=== PATIENT | male | born 1935 | race Caucasian/White ===

== ENCOUNTER 2017-07-07 02:19 | Observation (INO) | payer OTHER ==
[~2017-07-07] VITALS: Ht 167.6 cm; Wt 79.8 kg
[~2017-07-07 02:19] MED LIST: ACIPHEX20 M1 PO; FAMCICLOVIR250 MG PO; VITAMIN B-121000 MC3 PO; VITAMIN D2000 UNIT PO; ZESTRIL20 M1 PO; ZOCOR40 M1 PO
[2017-07-07 06:38] LABS: ABSOLUTE BASOPHIL COUNT 0 /CUMM (0.0-0.2); ABSOLUTE EOSINOPHIL COUNT 0.1 /CUMM (0.0-0.7); ABSOLUTE GRANULOCYTE CT 2.5 /CUMM (1.4-6.5); ABSOLUTE MONOCYTE COUNT 0.5 /CUMM (0.10-0.60); BASOPHIL % 0.5 % (0.0-2.0); EOSINOPHIL % 1.7 % (0-5); GRANULOCYTE % 57.3 % (42.2-75.2); HEMATOCRIT 32.6 % (42-52); MEAN CORPUSCULAR HGB 29.1 PG (27.0-31.0); MEAN CORPUSCULAR HGB CONC 31.6 G/DL (33.0-37.0); MEAN CORPUSCULAR VOLUME 91.9 FL (80.0-94.0); MEAN PLATELET VOLUME 8.1 FL (7.4-10.4); PLATELET COUNT 118 /CUMM (130-400); RBC DISTRIBUTION WIDTH 21.8 % (11.5-14.5); RED BLOOD CELL CT 3.55 /CUMM (4.70-6.10); WHITE BLOOD CELL COUNT 4.4 /CUMM (4.8-10.8)
[2017-07-07] MEDS ORDERED: LASIX20 M1 PO (06:59)
[2017-07-07 07:01] LABS: ABSOLUTE LYMPH COUNT 1.3 /CUMM (1.2-3.4)
--- NOTE | 2017-07-07 10:22 | Operative Report ---
Operative/Inv Procedure Report Surgery Date: 07/07/17 Name of Procedure: Diagnostic laparoscopy with lysis of adhesions Pre-Operative Diagnosis: 1. Abdominal pain. 2. Displaced penile implant reservoir 3. Abnormal abdominal CT scan findings Post-Operative Diagnosis: Same Estimated Blood Loss: scant Surgeon/Senior Label Specialist: Glenn Esposito DO,Freddie Matta Anesthesia: general endotracheal tube, block Monitors: Per routine Implants: None Urine Output: Adequate Drains: None Specimens: Refer to Dr. Humphries's note Complications: None Condition: Good Operative Indication: This is an 81-year-old man who had a CT scan for evaluation of abdominal pain. CT scan demonstrated misplacement of his penile implant reservoir into the peritoneal cavity with secondary small bowel involvement The CT scan also demonstrated a right lower quadrant mass adjacent to the appendix. His abdominal pain was very midgut and quality periumbilical crampy pain and I felt this could be related to this displaced reservoir. Urology was counseled and we decided to remove the reservoir at the same time perform a diagnostic laparoscopy. The patient underwent a bowel prep the day before the operation and the event there needed to be a bowel resection Operative/Procedure Note Note: The patient was taken to the operating room placed in supine position on the operating room table. He underwent induction of general anesthesia placement endotracheal tube. At this point Dr. Nikunj Humphries performed removal of the implants was performed. After his portion of the operation was completed the abdomen was reprepped and draped. We gained access to the abdominal cavity using a Valdez technique. A 12 mm Valdez port was placed in the suprabuccal position and then a 5 mm left lower quadrant and left upper quadrant ports were placed under direct visualization of the laparoscope. Laparoscopic expiration of the abdominal cavity was carried out. In the right lower quadrant I could see a hernia mesh in the inguinal canal. The mesh had balled up and contracted. The mesh was still covered by peritoneal lining and was adjacent to the appendix but not adherent to the appendix or any of the intestines. Photos were taken of this mesh. Next we turned our attention towards the left lower quadrant there was clearly bowel adhesions to the anterior abdominal wall in the area where the tumor had been. There was a small amount of bleeding or fluid in this area. Lysis of adhesions was carried out and the bowel was carefully inspected with the laparoscope. A few bleeding points were controlled on the abdominal wall. The bowel wall appeared completely intact with no evidence of serosal injury. So at this point the procedure was concluded. The ports were removed under direct visualization of the laparoscope. The fascia at the umbilical port was closed with a [id number] 0 Vicryl. All the skin incisions were closed with subcuticular 4-0 Monocryl. Mastisol Steri-Strips were applied. Dry sterile dressings were applied. The patient tolerated the procedure well was exiting operating room and taken recovery area in good condition. At the end of the operational needle sponges and instruments were accounted for. Findings: Right lower quadrant mass was actually hernia mesh Abdominal foreign body removed. Discharge Disposition: Same Day Admissions CC: Abner LLOYD,Sarah; Kamaljit LLOYD,Monty Wallace
--- NOTE | 2017-07-07 11:14 | Operative Report ---
Operative/Inv Procedure Report Surgery Date: 07/07/17 Name of Procedure: excision of left side penile implant reservoir. Pre-Operative Diagnosis: PI reservoir migrated intraperiotoneal, with small bowel involvement. Post-Operative Diagnosis: same: no small bowel adherance to reservoir Estimated Blood Loss: less than 50ml Surgeon/Chief Station Engineer: MD Humphries Arnold-Urology Anesthesia: general endotracheal tube Specimens: reservoir Complications: none Operative/Procedure Note Discharge Disposition: proceed with dr. murphy CC: Nikunj Humphries MD
--- NOTE | 2017-07-07 13:37 | Admission Core Measures ---
Acute Coronary Syndrome (CM) ACS Core Measures Acute Coronary Syndrome Diagnosis No Congestive Heart Failure (NEW) CHF Core Measures Congestive Heart Failure Diagnosis No Cerebrovascular Accident (NEW) CVA Core Measures CVA/TIA Diagnosis No Venous Thromboembolism VTE Core Betty (View Protocol) VTE Risk Factors Surgery No Mechanical VTE Prophylaxis d/t N/A MechProphylax Ordered No VTE Pharm Prophylaxis d/t NA PharmProphylax ordered Problem List As ranked by this Provider includes Assessment & Plan 1. Displacement of penile prosthesis implant 2. Intra-abdominal adhesions HOME MEDS Home Med List Cholecalciferol (Vitamin D3) (Vitamin D) 2,000 UNIT CAPSULE 1 CAP PO DAILY SUPPLEMENT (Reported) Cyanocobalamin (Vitamin B-12) 1,000 MCG TABLET 1 TAB PO DAILY SUPPLEMENT ( Reported) Famciclovir 250 MG TABLET 1 TAB PO DAILY ANTIVIRAL (Reported) Furosemide (Lasix) 20 MG TABLET 1 TAB PO DAILY LEG SWELLING (Reported) Lisinopril (Zestril) 20 MG TABLET 1 TAB PO DAILY BP (Reported) Rabeprazole Sodium (Aciphex) 20 MG TABLET.DR 1 TAB PO DAILY GI (Reported) Simvastatin (Zocor*) 40 MG TABLET 1 TAB PO QPM CHOLESTEROL (Reported)
[2017-07-07] MEDS ORDERED: AUGMENTIN 875-1 EACH PO (13:44)
[2017-07-07] MEDS ORDERED: PERCOCET 5-3251 EACH PO (13:44)
--- NOTE | 2017-07-07 13:51 | Patient Discharge Instructions ---
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 causing abdominal pain and adhesions You had these procedures: Removal of prosthetic implant, laparoscopic exploration and lysis of abdominal adhesions Watch for these problems: Worsening abdominal pain, nausea, vomiting, fever, flulike illness, drainage from the wounds, discharge from the wounds, redness, swelling Do not soak the wound: Yes No bath, but you may shower: Yes Other wound care: Change the Band-Aids when they get wet, the Steri-Strips will fall off on their own Special Instructions: take augmentin (antibiotic) twice daily for one week Diet Continue normal diet: Yes Recommended Diet: Regular Activity Full Activity/No Limits: No Activity Self Limited: Yes Pounds, do NOT lift more than: 10 Acute Coronary Syndrome Inclusion Criteria At DC or during hospital stay patient has or had the following: ACS DIAGNOSIS No Discharge Core Measures Meds if any: Prescribed or Continued at Discharge Meds if any: NOT Prescribed or Continued at Discharge Congestive Heart Failure Inclusion Criteria At DC or during hospital stay patient has or had the following: CHF DIAGNOSIS No Discharge Core Measures Meds if any: Prescribed or Continued at Discharge Meds if any: NOT Prescribed or Continued at Discharge Cerebrovascular accident Inclusion Criteria At DC or during hospital stay patient has or had the following: CVA/TIA Diagnosis No Discharge Core Measures Meds if any: Prescribed or Continued at Discharge Meds if any: NOT Prescribed or Continued at Discharge Venous thromboembolism Inclusion Criteria VTE Diagnosis No VTE Type NONE VTE Confirmed by (Test) NONE Discharge Core Measures - Per Current guidelines, there needs to be overlap - treatment for the first 5 days of Warfarin therapy. - If discharged on Warfarin prior to 5 days of - overlap therapy, the patient will need to be - assessed for post discharge needs including - *Post discharge parental anticoagulation - *Warfarin and/or parental anticoagulation education - *Follow up date to check INR post discharge At least 5 days overlap therapy as Inpatient No Meds if any: Prescribed or Continued at Discharge Note: Overlap Therapy is Warfarin and Anticoagulant Meds if any: NOT Prescribed or Continued at Discharge
--- NOTE | 2017-07-07 13:57 | Surg Short-stay <48hrs Dis Sum ---
Visit Information Visit Dates Admission Date: 07/07/17 Discharge Date: 07/08/17 Surgical Short Stay DC Summary Admission Diagnosis: Abdominal pain Final Diagnosis: Migration of prosthetic penile implant reservoir to the abdominal cavity causing abdominal pain and adhesions Procedure(s): Open Removal of prosthetic penile implant reservoir and laparoscopic exploration , lysis of abdominal adhesion Summary/Significant Findings: Patient was having mid left lower quadrant abdominal pain from a prosthetic penile implant reservoir that migrated from the pelvis into the abdominal cavity. This caused abdominal adhesions as well. The reservoir was removed I Dr. Humphries via an open procedure. Patient then underwent a laparoscopic exploration of the abdomen and lyse some adhesions by Dr. Elizabeth without complications. Intraoperatively there was no bowel injury. His diet was advanced, his pain was controlled, there are no signs of postoperative complications. He was placed on antibiotics prophylactically and continued on Augmentin prophylactically as requested by Dr. Humphries. He was discharged home in stable condition. Condition at Discharge: Good Discharge Disposition: home or self care Discharge instructions provided to patient/family: Yes Post discharge follow-up plan: Follow-up with Dr. Humphries in one week and Freddie Elizabeth DO in 2 weeks Take antibiotics for prevention of infection Pain medication as needed Dressing changes daily
--- NOTE | 2017-07-07 14:22 | PN- General Surgery ---
Subjective Subjective: Postop check: No complaints, tolerated clears for lunch, no pain. Objective Vital Signs and I&Os Intake & Output 07/07 1600 07/07 0000 07/06 0000 Intake Total Output Total Balance Patient 176 lb Weight Vital signs stable, afebrile Physical Exam: Well-developed well-nourished no apparent distress. HEENT: Atraumatic, extraocular motion intact Neck: Supple, no lymphadenopathy Respiratory: No respiratory distress Abdomen: Soft, nontender nondistended, incision is clean dry and intact Extremities: No edema, no calf pain Neuro: Alert and oriented x3 Psych: Mood affect normal, normal memory normal judgment. Skin: Warm and dry, no rash on exposed skin Assessment/Plan Assessment/Plan 81-year-old male postop day 0 status post open removal of prosthetic penile implant reservoir that migrated into the abdominal cavity and laparoscopic exploration for lysis of abdominal adhesions 23 hour observation for monitoring of bowel function Pain medication as needed. Out of bed, ad piedad. activity. Regular diet for dinner. Heparin and ALPS for DVT prophylaxis Plan for discharge tomorrow morning Core Measures Venous Thromboembolism VTE Risk Factors Surgery No Mechanical VTE Prophylaxis d/t N/A MechProphylax Ordered No VTE Pharm Prophylaxis d/t NA PharmProphylax ordered
[2017-07-07 15:04] VITALS: BP 140/60
[2017-07-07 22:21] VITALS: BP 120/62
[2017-07-08 05:59] VITALS: BP 118/57
--- NOTE | 2017-07-08 07:52 | PN- General Surgery ---
Subjective Subjective: feeling well, no n/v, scott reg diet. +oob to bathroom, +bm, +void. no pain. feels ready to dc home Objective Vital Signs and I&Os Vital Signs Date Time Temp Pulse Resp B/P B/P Pulse O2 O2 Flow FiO2 Mean Ox Delivery Rate 07/08 0559 98.3 74 20 118/57 92 07/07 2221 98.3 79 16 120/62 93 Room Air 07/07 1504 97.9 74 16 140/60 94 Room Air Intake & Output 07/08 0800 07/08 0000 07/07 1600 07/07 0800 07/07 0000 07/06 1600 Intake Total 240 720 Output Total 250 Balance 240 470 Intake, Oral 240 720 Number 2 Bowel Movements Output, Urine 250 Patient 176 lb 176 lb Weight Physical Exam: gen- nad card- rrr pulm- no audible wheeze abd- softly distended, nt, incisions w cdi dressings ext- calves soft nt, alps on bl Assessment/Plan Assessment/Plan A- POD1 sp lap SERENA, removal penile implant reservoir, stable P- prn pain meds augmentin bid x7days reg diet as tolerated dvt ppx, oob dc planning will dw Drs. Humphries and Glenn Core Measures Venous Thromboembolism VTE Risk Factors Surgery No Mechanical VTE Prophylaxis d/t N/A MechProphylax Ordered No VTE Pharm Prophylaxis d/t NA PharmProphylax ordered
--- NOTE | 2017-07-09 12:16 | Operative Report ---
Operative/Inv Procedure Report Surgery Date: 07/07/17 Name of Procedure: Extraction of migrated inflatable penile implant reservoir. Pre-Operative Diagnosis: Migrated penile implant reservoir into the peritoneum Post-Operative Diagnosis: . Same Estimated Blood Loss: scant Surgeon/Cadet Deck: MD Yandel, Nikunj-Urology Anesthesia: general endotracheal tube Drains: None Specimens: Penile implant reservoir Complications: None Operative/Procedure Note Note: The patient was taken to the operating room placed the OR table in supine position. Out was performed with the patient awake, in order to confirm correct identity, antibiotic, anesthesia, procedure, and perioperative information. After adequate anesthesia and antibiotics, the patient was then draped and prepped in usual surgical fashion. The old left hernia incision was infiltrated with 2% lidocaine. 15 blade knife was used to incise the old scar tissue from the left hernia repair. The incision was carried down through the Brandon's fascia using Bovie cautery in coag current. Blunt and sharp dissection was performed in order to enter 5 the tubing of the penile implant reservoir. 3 medium-sized clips were placed on the distal portion of the tubing prior to transecting the tubing in order to preserve the majority of the multiple components. The tubing leading to the reservoir draining clear fluid. Blunt and sharp dissection along this tubing was performed in order to visualize the distal bulbar with in a fibrous capsule. Gentle dissection was performed in order to extract the entire bulb and the portion of the tubing without difficulty. The area was copiously irrigated with vancomycin solution prior to closing the small fascial opening using 0 Vicryl sutures. The Brandon fascia was reapproximated using interrupted 3-0 chromic sutures. The skin was closed using 4-0 Monocryl subcuticular stitch. Steri-Strips and Tegaderm was then placed over the incision. All sponge needle and instrument count were correct at the end of this particular portion of the case. The patient tolerated the procedure well without complications. The patient is to proceed then with Dr. buckley portion of the surgery. Recommendation is for the patient to be continued on by mouth antibiotics for an additional 7 days postop. Discharge Disposition: proceed with Dr. Elizabeth Additional Comments: Patient to return in 3-6 months for re-implantation of new reservoir. CC: Nikunj Humphries MD
== END 2017-07-08 09:25 ==
LOC: STS 02:19 → EDSTATUS 07:00 → STS 07:00 → SDA 07:00 → PACUH 09:41 → ENRESERV 12:10 → ENTRNSPT 13:34 → EDTRNSPT 14:00 → EDTRNSPTSTS 14:00 → 2NB 14:10 → CMPTRNSPT 14:14 → ENPENDDIS 07-08 07:49 → ENTRNSPT 07-08 09:11 → 2NB 07-08 09:25 → CMPTRNSPT 07-08 09:30
PROVIDERS: Colon & Rectal Surgery
DX: T83.420A Displacement of implanted penile prosthesis, initial encounter (principal); Y73.2 Prosthetic and other implants, materials and accessory gastroenterology and urology devices associated with adverse incidents; R10.31 Right lower quadrant pain; M79.5 Residual foreign body in soft tissue; I11.0 Hypertensive heart disease with heart failure; N18.3 Chronic kidney disease, stage 3 (moderate); C90.00 Multiple myeloma not having achieved remission; I35.1 Nonrheumatic aortic (valve) insufficiency
CPT/HCPCS: 6040; 36415; 87086; 96372; 96374; 96376; C9399; G0378; J0131; J0690; J1644; J2405; J2550; J3370

== ENCOUNTER → 2017-11-12 | Day surgery (SDC) | payer OTHER ==
[~2017-11-12] VITALS: Ht 167.6 cm; Wt 73.5 kg
[~2017-11-12] MED LIST changes: +AUGMENTIN 875-1 EACH PO; +LASIX20 M1 PO; +PERCOCET 5-3251 EACH PO
--- NOTE | 2017-11-13 18:06 | Operative Report ---
Operative/Inv Procedure Report Surgery Date: 11/12/17 Name of Procedure: Revision multi component order inflatable penile implant reservoir Pre-Operative Diagnosis: Obstructive penile implant reservoir removed several weeks ago. Post-Operative Diagnosis: Same Estimated Blood Loss: less than 50ml Surgeon/Water Purification Chemist: Nikunj Humphries MD Anesthesia: laryngeal mask airway, block Implants: 125CC RESERVOIR Complications: NONE Operative/Procedure Note Note: The patient was taken as supine position after adequate anesthesia and antibiotics, the patient's abdomen and thighs scrubbed with Betadine for 10 minutes, and then ChloraPrep for sterility. The patient was then draped in the usual surgical fashion. A left lower quadrant incision, approximately 2 half centimeters long was made in oblique fashion just above the scar tissue. Using Bovie cautery, the incision was deepened to the level of the rectus fascia. Blunt and sharp dissection was performed in order to locate the stone on the multi component penile implant tUBING. Once the tubing was located, a rubber- shod clamp was placed on the tubing prior to excising the sEALED TIP. Clear fluid was aspirated from the penile implant and wasted. Fresh sterile saline was placed in the implant in order to ensure patency tubing and the implant a posterior rectus sheath was incised using 15 blade knifE, the rectus muscle was split using alternating clamp technique in order to identify the posterior sheath of the rectus fascia a space was created underneath the speak muscle where the 125 mL reservoir was placed. A total of 30 mL fresh sterile saline was placed within the penile implant for semi-erection, and 30 mL of sterile saline was placed in the reservoir. The tubing was detached using the Montgomery clips. Once the tubing was attached, the penile implant was cycled 3 times in order to confirm good function with easy flow in and out. The entire area was copiously irrigated with vancomycin and gentamicin irrigation. The anterior rectus sheath was then closed using interrupted 0 Vicryl sutures. Subcutaneous flap was . reapproximated using 2-0 chromic sutures in interrupted fashion. The skin was closed using 4-0 Monocryl subcuticular stitch. Dermabond was then used to seal the skin incision, and then sterile gauze and Tegaderm was placed on the incision. All sponge needle and instrument count were correct at the case. The patient tolerated the procedure well. I patient was then taken to the recovery room in satisfactory condition. Discharge Disposition: PACU CC: Nikunj Humphries MD
== END ==
LOC: STS 02:54
DX: N52.9 Male erectile dysfunction, unspecified (principal); N52.03 Combined arterial insufficiency and corporo-venous occlusive erectile dysfunction; C90.01 Multiple myeloma in remission; I10 Essential (primary) hypertension; I25.10 Atherosclerotic heart disease of native coronary artery without angina pectoris
CPT/HCPCS: 93005; 93010; C2622; J0131; J1100; J1580; J2001; J2250; J2405; J3370

== ENCOUNTER 2017-12-24 11:49 | Inpatient (IN) | payer OTHER ==
[~2017-12-24] VITALS: Ht 167.6 cm; Wt 74.9 kg
[2017-12-24 13:36] LABS: ABSOLUTE BASOPHIL COUNT 0 /CUMM (0.0-0.2); ABSOLUTE EOSINOPHIL COUNT 0 /CUMM (0.0-0.7); ABSOLUTE GRANULOCYTE CT 1.7 /CUMM (1.4-6.5); ABSOLUTE LYMPH COUNT 0.9 /CUMM (1.2-3.4); ABSOLUTE MONOCYTE COUNT 0.4 /CUMM (0.10-0.60); BASOPHIL % 0 % (0.0-2.0); EOSINOPHIL % 1.5 % (0-5); GRANULOCYTE % 54.2 % (42.2-75.2); HEMATOCRIT 29.8 % (42-52); MEAN CORPUSCULAR HGB 28.2 PG (27.0-31.0); MEAN CORPUSCULAR HGB CONC 32.1 G/DL (33.0-37.0); MEAN CORPUSCULAR VOLUME 87.9 FL (80.0-94.0); MEAN PLATELET VOLUME 10.1 FL (7.4-10.4); RBC DISTRIBUTION WIDTH 21.7 % (11.5-14.5); RED BLOOD CELL CT 3.38 /CUMM (4.70-6.10); WHITE BLOOD CELL COUNT 3.1 /CUMM (4.8-10.8)
[2017-12-24 13:54] LABS: PLATELET COUNT 64 /CUMM (130-400)
--- NOTE | 2017-12-24 14:19 | RADIOLOGY REPORT ---
EXAMINATION: XR CHEST CLINICAL INFORMATION: Fever COMPARISON: None TECHNIQUE: 2 views of the chest were obtained. FINDINGS: Lungs are well expanded. There is an area of airspace opacity with hazy border in the anterior aspect of the superior segment of the left lower lobe. No left-sided pleural effusion. Minimal blunting of the right lateral costophrenic sulcus could be secondary to minimal pleural thickening. Cardiac silhouette is normal in size and hilar contours are normal. Mild spondylosis of the thoracic spine. IMPRESSION: The airspace opacity within the superior segment left lower lobe likely represents pneumonia. Recommend radiographic follow-up in 6 weeks - after completion of medical therapy - to ensure disease resolution.
--- NOTE | 2017-12-24 15:24 | ED GENERAL ADULT ---
History of Present Illness General Chief Complaint: Fever Stated Complaint: FEVER X 5 DAYS Source: patient Exam Limitations: no limitations Vital Signs & Intake/Output Vital Signs & Intake/Output Vital Signs Date Time Temp Pulse Resp B/P B/P Pulse O2 O2 Flow FiO2 Mean Ox Delivery Rate 12/24 1713 101.2 12/24 1712 101.2 70 18 98/56 95 Room Air 12/24 1630 98.6 12/24 1557 98.6 70 18 122/58 95 Room Air 12/24 1219 98.7 73 20 132/55 97 Room Air Allergies Coded Allergies: No Known Allergies (11/11/17) Reconcile Medications Bortezomib (Velcade) 3.5 MG VIAL 2.34 MG SC AD CHEMO (Reported) Calcium (Elemental-Fr Calcarb) (Calcium) (Unknown Strength) TABLET (Unknown Dose) PO DAILY SUPPLEMENT (Reported) Cholecalciferol (Vitamin D3) (Vitamin D) 2,000 UNIT CAPSULE 1 CAP PO DAILY SUPPLEMENT (Reported) Cyanocobalamin (Vitamin B-12) 1,000 MCG TABLET 1 TAB PO DAILY SUPPLEMENT ( Reported) Dexamethasone 2 MG TABLET 10 MG PO AD STEROID (Reported) Famciclovir 250 MG TABLET 1 TAB PO DAILY ANTIVIRAL (Reported) Lenalidomide (Revlimid) 10 MG CAPSULE 1 CAP PO DAILY CHEMO (Reported) Multivitamin (Multi-Vitamin Daily) 1 EACH TABLET 1 TAB PO DAILY SUPPLEMENT ( Reported) Rabeprazole Sodium (Aciphex) 20 MG TABLET.DR 1 TAB PO DAILY GI (Reported) Simvastatin (Zocor*) 40 MG TABLET 1 TAB PO QPM CHOLESTEROL (Reported) Triage Note: PT TO ED C/O FEVER OF 102 X 5 DAYS. PT CURRENTLY BEING TREATED FOR MULTIPLE MYELOMA. PT DENIES PAIN, C/P, HAS NO COMPLAINTS. Triage Nurses Notes Reviewed? yes Onset: Gradual Duration: day(s): Timing: recent history HPI: 82 year old male presents to the Emergency Department with a fever since Thursday. Pt denies blood in his urine, chest pain. The patient reports he has a history of multiple myeloma and is on chemotherapy. The patient denies headache, neck pain, cough, phlegm, abdominal pain, dysuria, hematuria. Past History Travel History Traveled to [place] past 21 day No Medical History Any Pertinent Medical History? see below for history Neurological: peripheral neuropathy Cardiovascular: hypertension, AORTIC INSUFFICENCY Gastrointestinal: GERD Blood Disorders: anemia Cancer(s): MULTIPLE MYELOMA History of MRSA: No History of VRE: No History of CDIFF: No Influenza Vaccine: 03/18/17 Surgical History Surgical History: non-contributory Psychosocial History What is your primary language Fijian Tobacco Use: Never used ETOH Use: denies use Illicit Drug Use: denies illicit drug use Family History Hx Contributory? No Review of Systems Review of Systems Constitutional: Reports: see HPI, chills, fever. EENTM: Reports: no symptoms. Respiratory: Reports: no symptoms. Denies: cough, hemoptysis, short of breath. Cardiovascular: Reports: no symptoms. Denies: chest pain. GI: Reports: no symptoms. Denies: vomiting. Genitourinary: Reports: no symptoms. Denies: hematuria. Musculoskeletal: Reports: no symptoms. Skin: Reports: no symptoms. Neurological/Psychological: Reports: no symptoms. Hematologic/Endocrine: Reports: no symptoms. Immunologic/Allergic: Reports: no symptoms. All Other Systems: Reviewed and Negative Comments Pt afebrile on arrival and noted with a cough. Pt also presents with tremors. Physical Exam Physical Exam General Appearance: alert, awake, mild distress Head: atraumatic, normal appearance Eyes: Bilateral: normal appearance, PERRL, EOMI. Ears, Nose, Throat: normal ENT inspection Neck: normal inspection Respiratory: decreased breath sounds Cardiovascular: regular rate/rhythm Peripheral Pulses: 4+ radial (R), 4+ radial (L) Gastrointestinal: soft, non-tender Extremities: normal inspection, no edema Neurologic/Psych: no motor/sensory deficits, awake, alert, oriented x 3 Skin: intact, normal color, dehydrated Core Measures ACS in differential dx? No CVA/TIA Diagnosis: No Sepsis Present: No Sepsis Focused Exam Completed? No Progress Differential Diagnoses . Plan of Care: Orders Procedure Date/time Status CBC WITHOUT DIFFERENTIAL 12/25 06 Active BASIC ELECTROLYTES PLUS BUN&CR 12/25 0600 Active Heart Healthy Diet 12/24 D Active Pathway - chart 12/24 1751 Active Add-on Test (ER Only) 12/24 1728 Active Patient Data 12/24 1605 Active VITAL CAPACITY MONITORING 12/24 1600 Active ED Holding Orders 12/24 1600 Active Admit to inpatient 12/24 1600 Active Code Status 12/24 1600 Active Intake & Output 12/24 1554 Active Add-on Test (ER Only) 12/24 1426 Active TROPONIN LEVEL 12/24 1308 Active B-TYPE NATRIURETIC PEP (BNP) 12/24 1308 Active EKG 12/24 1235 Active BLOOD CULTURE 12/24 1234 Active URINALYSIS 12/24 1234 Complete LACTIC ACID 12/24 1234 Active COMPREHENSIVE METABOLIC PANEL 12/24 1234 Active CBC WITHOUT DIFFERENTIAL 12/24 1234 Complete VTE Mechanical Prophylaxis 12/24 UNK Active Nursing Misc 12/24 UNK Active Current Medications Sig/Meliza Start time Last Medication Dose Stop Time Status Admin Vancomycin HCl 1,000 MG Q24H 12/25 1630 AC Sodium Chloride 250 ML (Normal Saline 0.9%) Ceftazidime 1,000 MG Q12 12/24 2100 UNVr (Fortaz) Acetaminophen 650 MG Q8P PRN 12/24 1800 AC (Tylenol) Sodium Chloride 1,000 ML Q13H 12/24 1730 AC 12/24 (Normal Saline 0.9%) 1740 Laboratory Tests 12/24/17 1534: Lactic Acid Cancelled 12/24/17 1525: Lactic Acid Cancelled 12/24/17 1330: Urinalysis LIGHT H, Urine Color YEL, Urine Clarity HAZY H, Urine pH 6.0, Ur Specific [place] 1.020, Urine Protein 100 H, Urine Ketones NEG, Urine Nitrite NEG, Urine Bilirubin NEG, Urine Urobilinogen 0.2, Ur Leukocyte Esterase NEG, Ur Microscopic SEDIMENT EXAMINED, Urine RBC >75 H, Urine WBC 3-5 H, Ur Epithelial Cells FEW, Urine Bacteria FEW H, Urine Hemoglobin LARGE H, Urine Glucose NEG 12/24/17 1308: Anion Gap 9, Estimated GFR 29 L, BUN/Creatinine Ratio 14.5, Glucose 103 H, Lactic Acid 0.8, Calcium 7.5 L, Total Bilirubin 1.0, AST 20, ALT 40, Alkaline Phosphatase 87, Troponin I 0.15 *H, Nse-B-Nxqxgurgicw Pept Pending, Total Protein 5.3 L, Albumin 3.0 L, Globulin 2.3, Albumin/Globulin Ratio 1.3, CBC w Diff NO MAN DIFF REQ, RBC 3.38 L, MCV 87.9, MCH 28.2, MCHC 32.1 L, RDW 21.7 H , MPV 10.1, Gran % 54.2, Lymphocytes % 29.8, Monocytes % 14.5 H, Eosinophils % 1.5, Basophils % 0, Absolute Granulocytes 1.7, Absolute Lymphocytes 0.9 L, Absolute Monocytes 0.4, Absolute Eosinophils 0, Absolute Basophils 0 12/24/17 1235: Troponin I Cancelled Microbiology 12/24 1525 BLOOD: Blood Culture - CAN Cancelled: Cancelled via OE: DUPLICATE ORDER 12/24 1525 BLOOD: Blood Culture - CAN Cancelled: Cancelled via OE: DUPLICATE ORDER 12/24 1308 BLOOD: Blood Culture - RECD 12/24 1301 BLOOD: Blood Culture - RECD Initial ED EKG: normal sinus rhythm Prior EKG: unchanged Comments: X-ray shows Pna, blood cultures and lactic acid ordered. 180 82-year-old male with pneumonia. The patient is immunocompromise so we will give him broad-spectrum antibiotics. Cefepime is unavailable we will give him third-generation cephalosporin with vancomycin. The patient's lactate is normal. His blood pressures have been good. We will keep an eye on him. The patient will be admitted to the medicine service. I spoke with the hospitalist on MOD and the patient will be admitted. The patient does have abnormal urine but reports this is chronic for him he reports that 2 days ago he had a culture done by speech which was negative. We will send it for culture but we will not do any more further testing at this time. Departure Departure Time of Disposition: 1809 Disposition: STILL A PATIENT Condition: Stable Clinical Impression Primary Impression: Pneumonia Referrals: Juliana Lopes MD (PCP/Family) Departure Forms: Customer Survey General Discharge Information Critical Care Note Critical Care Note Critical Care Time: non-applicable ED Attending Observation Initial Observation Note: I have seen and personally examined DENI NORMAN on 12/24/17 at 1810. I agree with the current emergency department documentation. The disposition (admission or discharge) is uncertain at this time, he needs a period of observation for the following reason(s): The ED Nurse caring for this patient has been personally informed as to what the patient is being observed for.
[2017-12-24] MEDS ORDERED: CALCIUM600 M3 PO (16:13)
[2017-12-24] MEDS ORDERED: DEXAMETHASONE2 M1 PO (16:15)
[2017-12-24] MEDS ORDERED: MULTI-VITAMIN1 EACH PO (16:16)
[2017-12-24] MEDS ORDERED: VELCADE SC (16:17)
[2017-12-24] MEDS ORDERED: REVLIMID10 M1 PO (16:18)
--- NOTE | 2017-12-24 17:18 | History & Physical ---
Elizabeth Eckert 12/24/17 1718: General Information and HPI MD Statement: I have seen and personally examined DENI NORMAN and documented this H&P. The patient is a 82 year old M who presented with a patient stated chief complaint of [fever]. Source of Information: patient, family Exam Limitations: no limitations History of Present Illness: Patient a 82-year-old male with past medical history of aortic aneurysm, CKD, GERD, multiple myeloma diagnosed [address] Ruth DALE, on revlmid daily and Velcade and dexamethasone (3 weeks on, 1 week off), was brought in by with a chief complaint of fever since Thursday. Patient reports that he was increasingly weak since Thursday, and when the checked his temperature it was 102. He followed up with his oncologist and was prescribed azithromycin which he started taking on Thursday untill am. For fever he has been taking [id number] Tylenol. Patient had an appointment to see a primary care physician today, however came to ER. Patient reports that he has been having exertional dyspnea and therefore had a recent echocardiogram done by his bond writer 2 days ago. Patient denies any chest pain, productive cough, dizziness, headache, palpitations, abd discomfort, burning micturition/ pain or swelling in the legs. Patient reported that he has been having fever and UTI while being on chemotherapy. Patient reports that microscopic hematuria that has been going on since a couple of years now, he had a cystoscopy done with his urologist previously and was told that there is no mass in the bladder. 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 Humphries. There is no gross hematuria as his urine is yellow in color. Allergies/Medications Allergies: Coded Allergies: No Known Allergies (11/11/17) Compliance With Home Meds: GOOD Past History Travel History Traveled to [place] past 21 day No Medical History Neurological: peripheral neuropathy Cardiovascular: hypertension, AORTIC INSUFFICENCY Gastrointestinal: GERD Blood Disorders: anemia Cancer(s): MULTIPLE MYELOMA History of MRSA: No History of VRE: No History of CDIFF: No Influenza Vaccine: 03/18/17 Surgical History Surgical History: non-contributory Past Family/Social History Psychosocial History ETOH Use: denies use Illicit Drug Use: denies illicit drug use Review of Systems Review of Systems Constitutional: Reports: see HPI. Exam & Diagnostic Data Last 24 Hrs of Vital Signs/I&O Vital Signs Date Time Temp Pulse Resp B/P B/P Pulse O2 O2 Flow FiO2 Mean Ox Delivery Rate 12/24 1816 99.2 64 18 132/62 97 Room Air 12/24 1713 101.2 12/24 1712 101.2 70 18 98/56 95 Room Air 12/24 1630 98.6 12/24 1557 98.6 70 18 122/58 95 Room Air 12/24 1219 98.7 73 20 132/55 97 Room Air Intake & Output 12/24 1600 12/24 0800 12/24 0000 Intake Total Output Total Balance Patient 71.214 kg Weight Weight Reported by Patient Measurement Method Physical Exam General Appearance Alert, Oriented X3, Cooperative, No Acute Distress Skin No Rashes HEENT Atraumatic Neck Supple Cardiovascular Regular Rate, Normal S1, Normal S2 Lungs Clear to Auscultation Abdomen Normal Bowel Sounds, Soft, No Tenderness Extremities No Edema Last 24 Hrs of Labs/Jerome: Laboratory Tests 12/24/17 1825: Lactic Acid Cancelled 12/24/17 1534: Lactic Acid Cancelled 12/24/17 1525: Lactic Acid Cancelled 12/24/17 1330: Urinalysis LIGHT H, Urine Color YEL, Urine Clarity HAZY H, Urine pH 6.0, Ur Specific [place] 1.020, Urine Protein 100 H, Urine Ketones NEG, Urine Nitrite NEG, Urine Bilirubin NEG, Urine Urobilinogen 0.2, Ur Leukocyte Esterase NEG, Ur Microscopic SEDIMENT EXAMINED, Urine RBC >75 H, Urine WBC 3-5 H, Ur Epithelial Cells FEW, Urine Bacteria FEW H, Urine Hemoglobin LARGE H, Urine Glucose NEG 12/24/17 1308: Anion Gap 9, Estimated GFR 29 L, BUN/Creatinine Ratio 14.5, Glucose 103 H, Lactic Acid 0.8, Calcium 7.5 L, Total Bilirubin 1.0, AST 20, ALT 40, Alkaline Phosphatase 87, Troponin I 0.15 *H, Upm-T-Mtursclsakk Pept 3330 H, Total Protein 5.3 L, Albumin 3.0 L, Globulin 2.3, Albumin/Globulin Ratio 1.3, CBC w Diff NO MAN DIFF REQ, RBC 3.38 L, MCV 87.9, MCH 28.2, MCHC 32.1 L, RDW 21.7 H , MPV 10.1, Gran % 54.2, Lymphocytes % 29.8, Monocytes % 14.5 H, Eosinophils % 1.5, Basophils % 0, Absolute Granulocytes 1.7, Absolute Lymphocytes 0.9 L, Absolute Monocytes 0.4, Absolute Eosinophils 0, Absolute Basophils 0 12/24/17 1235: Troponin I Cancelled Microbiology 12/24 1525 BLOOD: Blood Culture - CAN Cancelled: Cancelled via OE: DUPLICATE ORDER 12/24 1525 BLOOD: Blood Culture - CAN Cancelled: Cancelled via OE: DUPLICATE ORDER 12/24 1308 BLOOD: Blood Culture - RECD 12/24 1301 BLOOD: Blood Culture - RECD Assessment/Plan Assessment: Patient a 82-year-old male with past medical history of aortic aneurysm, CKD, GERD, multiple myeloma diagnosed [address] Ruth DALE, on revlmid daily and Velcade and dexamethasone (3 weeks on, 1 week off), was brought in by with a chief complaint of fever since Thursday. Patient reports that he was increasingly weak since Thursday, and when the checked his temperature it was 102. He followed up with his oncologist and was prescribed azithromycin which he started taking on Thursday till morning. For fever he has been taking emxj-phn-[id number] Tylenol. Patient had an appointment to see a primary care physician today, however he came to ER. Patient reports that he has been having exertional dyspnea and therefore had a recent echocardiogram done by his bond writer 2 days ago. Patient denies any chest pain, productive cough, dizziness, headache, palpitations, abd discomfort, burning micturition/ pain or swelling in the legs. Patient reported that he has been having fever and UTI while being on chemotherapy. Labs and vitals as above. hemoglobin 9.5, creatinine 2.2. UA shows large hemoglobin and RBCs. CXR: The airspace opacity within the superior segment left lower lobe likely represents pneumonia. Recommend radiographic follow-up in 6 weeks - after completion of medical therapy - to ensure disease resolution. Assessment and plan Will admit the patient for community acquired pneumonia in the setting of multiple myeloma. Patient was given broad-spectrum antibiotics in the ER, vancomycin and CeFtaz and will continue. Patient took his Revlimid this am, he takes dexamethasone only with Velcade which he says is due in 2 weeks since next week is his 'off week' for treatment. Vitals every shift. Given his elevated troponins, will trend troponins and EKG, will place cardio consult. Given his current treatment for multiple myeloma with an ongoing infection and low platelets and wbc count, will call hematology consult for a.m. Please consider ID consult in a.m. as well. Due to thrombocytopenia DVT prophylaxis Alps. Patient is full code. As Ranked By This Provider Problem List: 1. Pneumonia Core Measures/Misc (02/15) Acute Coronary Syndrome ACS Diagnosis: No Congestive Heart Failure Congestive Heart Failure Diagnosis No Cerebrovascular Accident CVA/TIA Diagnosis: No VTE (View Protocol) VTE Risk Factors Age>40 No Mechanical VTE Prophylaxis d/t N/A MechProphylax Ordered No VTE Pharm Prophylaxis d/t Platelets below ref range Sepsis (View protocol) Sepsis Present: No If YES complete Sepsis Event Note If YES complete Sepsis Event Note Margarita Mayfield MD 12/24/17 3824: General Information and HPI Allergies/Medications Home Med list Bortezomib (Velcade) 3.5 MG VIAL 2.34 MG SC AD CHEMO (Reported) Calcium (Elemental-Fr Calcarb) (Calcium) (Unknown Strength) TABLET (Unknown Dose) PO DAILY SUPPLEMENT (Reported) Cholecalciferol (Vitamin D3) (Vitamin D) 2,000 UNIT CAPSULE 1 CAP PO DAILY SUPPLEMENT (Reported) Cyanocobalamin (Vitamin B-12) 1,000 MCG TABLET 1 TAB PO DAILY SUPPLEMENT ( Reported) Dexamethasone 2 MG TABLET 10 MG PO AD STEROID (Reported) Famciclovir 250 MG TABLET 1 TAB PO DAILY ANTIVIRAL (Reported) Lenalidomide (Revlimid) 10 MG CAPSULE 1 CAP PO DAILY CHEMO (Reported) Multivitamin (Multi-Vitamin Daily) 1 EACH TABLET 1 TAB PO DAILY SUPPLEMENT ( Reported) Rabeprazole Sodium (Aciphex) 20 MG TABLET.DR 1 TAB PO DAILY GI (Reported) Simvastatin (Zocor*) 40 MG TABLET 1 TAB PO QPM CHOLESTEROL (Reported) Temazepam 15 MG CAPSULE 1 CAP PO QPMP Sleep (Reported) Core Measures/Misc (02/15) Sepsis (View protocol) If YES complete Sepsis Event Note If YES complete Sepsis Event Note Attending MD Review Statement Attending Statement Attending MD Statement: examined this patient, discuss w/resident/PA/SOLAR DEVELOPMENT ENGINEER, agreed w/resident/PA/SOLAR DEVELOPMENT ENGINEER, discussed with family, reviewed EMR data (avail), discussed with nursing, discussed with case mgmt, reviewed images, amended to note Attending Assessment/Plan: 82-year-old male with past medical history significant for multiple myeloma undergoing chemotherapy with Velcade, Revlimid, dexamethasone and also on famciclovir, chronic kidney disease stage III, hypertension, GERD, chronic anemia who presented with fevers. Apparently patient has been having high-grade fever since last 5 days. He had been taking Tylenol. He did complain of feeling chills. He was prescribed azithromycin by his oncologist. He does have a history of recurrent fevers while on chemo as well as UTIs. He had taken 4 doses of azithromycin and his fevers did not come down. He had also developed diarrhea related to chemotherapy in the past but currently denies any diarrhea. He denies any chest pain or abdominal pain. He denies any cough. In the emergency room his chest x-ray was consistent with possible pneumonia. Patient was found to be febrile to 101. Vital Signs Date Time Temp Pulse Resp B/P B/P Pulse O2 O2 Flow FiO2 Mean Ox Delivery Rate 12/24 1713 101.2 12/24 1712 101.2 70 18 98/56 95 Room Air 12/24 1630 98.6 12/24 1557 98.6 70 18 122/58 95 Room Air 12/24 1219 98.7 73 20 132/55 97 Room Air on exam; aox3, nad. cv; s1, s2, rrr resp; + crackles b/l bases L>R. abd; soft, nt, bs+ ext; trace edema. Laboratory Tests 12/24 12/24 1534 1525 Chemistry Lactic Acid Cancelled Cancelled 12/24 12/24 1330 1308 Chemistry Sodium (137 - 145 mmol/L) 137 Potassium (3.5 - 5.1 mmol/L) 4.5 Chloride (98 - 107 mmol/L) 105 Carbon Dioxide (22 - 30 mmol/L) 24 Anion Gap (5 - 16) 9 BUN (9 - 20 mg/dL) 32 H Creatinine (0.7 - 1.2 mg/dL) 2.2 H Estimated GFR (>60 ml/min) 29 L BUN/Creatinine Ratio (7 - 25 %) 14.5 Glucose (65 - 99 mg/dL) 103 H Lactic Acid (0.7 - 2.1 mmol/L) 0.8 Calcium (8.4 - 10.2 mg/dL) 7.5 L Total Bilirubin (0.2 - 1.3 mg/dL) 1.0 AST (17 - 59 U/L) 20 ALT (21 - 72 U/L) 40 Alkaline Phosphatase (< 127 U/L) 87 Troponin I (<0.11 ng/ml) 0.15 *H [id number]-Ncjqmopqeyu Pept (<125 pg/mL) Pending Total Protein (6.3 - 8.2 g/dL) 5.3 L Albumin (3.5 - 5.0 g/dL) 3.0 L Globulin (1.9 - 4.2 gm/dL) 2.3 Albumin/Globulin Ratio (1.1 - 2.2 %) 1.3 Hematology CBC w Diff NO MAN DIFF REQ WBC (4.8 - 10.8 /CUMM) 3.1 L RBC (4.70 - 6.10 /CUMM) 3.38 L Hgb (14.0 - 18.0 G/DL) 9.5 L Hct (42 - 52 %) 29.8 L MCV (80.0 - 94.0 FL) 87.9 MCH (27.0 - 31.0 PG) 28.2 MCHC (33.0 - 37.0 G/DL) 32.1 L RDW (11.5 - 14.5 %) 21.7 H Plt Count (130 - 400 /CUMM) 64 L MPV (7.4 - 10.4 FL) 10.1 Gran % (42.2 - 75.2 %) 54.2 Lymphocytes % (20.5 - 51.1 %) 29.8 Monocytes % (1.7 - 9.3 %) 14.5 H Eosinophils % (0 - 5 %) 1.5 Basophils % (0.0 - 2.0 %) 0 Absolute Granulocytes (1.4 - 6.5 /CUMM) 1.7 Absolute Lymphocytes (1.2 - 3.4 /CUMM) 0.9 L Absolute Monocytes (0.10 - 0.60 /CUMM) 0.4 Absolute Eosinophils (0.0 - 0.7 /CUMM) 0 Absolute Basophils (0.0 - 0.2 /CUMM) 0 Urines Urinalysis LIGHT H Urine Color (YEL,AMB,STR) YEL Urine Clarity (CLEAR) HAZY H Urine pH (5.0 - 8.0) 6.0 Ur Specific [place] (1.001 - 1.035) 1.020 Urine Protein (NEG,<30 MG/DL) 100 H Urine Ketones (NEG) NEG Urine Nitrite (NEG) NEG Urine Bilirubin (NEG) NEG Urine Urobilinogen (0.1 - 1.0 EU/dl) 0.2 Ur Leukocyte Esterase (NEG) NEG Ur Microscopic SEDIMENT EXAMINED Urine RBC (0 - 5 /HPF) >75 H Urine WBC (0 - 2 /HPF) 3-5 H Ur Epithelial Cells (NONE,FEW) FEW Urine Bacteria (NEG/NONE) FEW H Urine Hemoglobin (NEG) LARGE H Urine Glucose (N MG/DL) NEG 12/24 1235 Chemistry Troponin I Cancelled EKG shows sinus rhythm with no acute ST-T wave changes. CXR: IMPRESSION: The airspace opacity within the superior segment left lower lobe likely represents pneumonia. Recommend radiographic follow-up in 6 weeks - after completion of medical therapy - to ensure disease resolution. A/P: 82-year-old male with past medical history significant for multiple myeloma undergoing chemotherapy with Velcade, Revlimid, dexamethasone and also on famciclovir, chronic kidney disease stage III, hypertension, GERD, chronic anemia admitted to telemetry floor with high-grade fever in an immunocompromised patient, possible pneumonia and high troponin likely secondary to demand ischemia. Patient was given broad-spectrum antibiotics in the emergency room. Will continue Vanco and ceftaz. Will follow blood culture, obtain urine culture, try to obtain sputum culture. Please consult infectious disease. Please also consult hematology. According to patient's , this is his week on for his Revlimid which she will bring in. Please trend troponins. Patient mentioned that he had a recent echo done in his bond writer office. Please try to get records from his bond writer. Please consult cardiology. Will start the patient on baby aspirin. Continue statin. Please continue the rest of his home medications. Please clarify about the dosing for dexamethasone. Noted a slight drop in his blood pressure, will hydrate him with IV fluids and his blood pressure does not respond that he might need stress dose steroids. DVT prophylaxis: ALPS secondary to thrombocytopenia. Patient is a full code. Discussed with patient's at length at bedside.
[2017-12-24 23:36] VITALS: BP 148/64
[2017-12-25] MEDS ORDERED: TEMAZEPAM15 M1 PO (00:09)
[2017-12-25 06:28] VITALS: BP 118/56
--- NOTE | 2017-12-25 07:21 | PN- Housestaff ---
Subjective Follow-up For: Pneumonia, troponins high secondary to demand ischemia Complaints: no complaints Subjective: Pt seen & examined lying comfortably in bed. No complaints, no acute events Review of Systems Constitutional: Reports: see HPI. Objective Last 24 Hrs of Vital Signs/I&O Vital Signs Date Time Temp Pulse Resp B/P B/P Pulse O2 O2 Flow FiO2 Mean Ox Delivery Rate 12/25 1814 102.2 12/25 1400 99.2 69 20 120/56 95 Room Air 12/25 0819 99.6 12/25 0628 99.6 70 20 118/56 93 Room Air 12/25 0510 102.3 12/24 2336 99.7 78 20 148/64 96 Room Air 12/24 2335 Room Air 12/24 2209 99.3 68 18 130/65 98 Room Air Intake & Output 12/25 1600 12/25 0800 12/25 0000 Intake Total 900 820 Output Total 350 Balance 900 470 Intake, IV 500 600 Intake, Oral 400 220 Output, Urine 350 Patient 161 lb Weight Weight Bed scale Measurement Method Physical Exam General Appearance: Alert, Oriented X3, Cooperative, No Acute Distress Skin: No Rashes, No Breakdown, No Significant Lesion Skin Temp/Moisture Exam: Cool/Dry Sepsis Skin Exam (color): Normal for Ethnicity HEENT: Atraumatic, Mucous Membr. 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 Vitals: The patient had a fever this morning at 5 AM with a T-max of 102.3. At 7 AM temperature was 99.6 otherwise vitals are stable and he saturating well on room air Troponins: 0.15--- 0.13----0.13 ProBNP: 3330 Urinalysis: Hazy, protein 100, RBC more than 75, WBC 123, negative leukocyte esterase, hemoglobin large Problems: #Multiple myeloma on Revlimid, Valcade, dexamethasone #High grade fever (Tmax 102.3) #pneumonia in an immunocompromised patient #High troponins-demand ischemia #Ch anemia due to Chemotherapy PLAN: * Cont. telemetry cardiac monitoring * Incentive spirometry/trc/nebs * Monitor oxygen saturation. Give O2 by NC if sats < 92% * Discontinue Vancomycin and Ceftazidime Start Ceftriaxone 1 g IV every 24 hours and Doxycycline 100 mg p.o. every 12 hours * Continue Famciclovir prophylaxis * Follow-up urine culture, blood culture, sputum culture * Check urine for strep pneumo antigen and Legionella antigen * CT chest w/o IV contrast * Renal USG * If there is a drop in blood pressure hydrate with IV fluids and if does not respond stress dose steroids * DVT px: ALPS * Diet:heart healthy * Code status: FC Problem List: 1. Pneumonia 2. Anemia due to chemotherapy 3. Multiple myeloma Pain Ratin Pain Location: none Pain Goal: Remain pain free Pain Plan: follow pain pathway Tomorrow's Labs & Rationales: cbc, bep
--- NOTE | 2017-12-25 07:50 | Cons- Hematology ---
General Information and HPI Consulting Request Date of Consult: 12/25/17 Requested By: Chaparro LLOYD,Margarita History of Present Illness: Patient is an 82-year-old gentleman with documented multiple myeloma treated with Decadron/Revlimid/Velcade by . Patient is now admitted with fever. This past week the patient is a documented fever is been treated by his storage management architect oral antibiotics. Because of persistent fever he came to the [place] emergency room. Patient denies chills. Patient denies productive cough abdominal pain or dysuria. The patient tells me that in the past has had issues with urinary tract infections. Allergies/Medications Allergies: Coded Allergies: No Known Allergies (11/11/17) Home Med List: Bortezomib (Velcade) 3.5 MG VIAL 2.34 MG SC AD CHEMO (Reported) Calcium (Elemental-Fr Calcarb) (Calcium) (Unknown Strength) TABLET (Unknown Dose) PO DAILY SUPPLEMENT (Reported) Cholecalciferol (Vitamin D3) (Vitamin D) 2,000 UNIT CAPSULE 1 CAP PO DAILY SUPPLEMENT (Reported) Cyanocobalamin (Vitamin B-12) 1,000 MCG TABLET 1 TAB PO DAILY SUPPLEMENT ( Reported) Dexamethasone 2 MG TABLET 10 MG PO AD STEROID (Reported) Famciclovir 250 MG TABLET 1 TAB PO DAILY ANTIVIRAL (Reported) Lenalidomide (Revlimid) 10 MG CAPSULE 1 CAP PO DAILY CHEMO (Reported) Multivitamin (Multi-Vitamin Daily) 1 EACH TABLET 1 TAB PO DAILY SUPPLEMENT ( Reported) Rabeprazole Sodium (Aciphex) 20 MG TABLET.DR 1 TAB PO DAILY GI (Reported) Simvastatin (Zocor*) 40 MG TABLET 1 TAB PO QPM CHOLESTEROL (Reported) Temazepam 15 MG CAPSULE 1 CAP PO QPMP Sleep (Reported) Current Medications: Current Medications Sig/Meliza Start time Last Medication Dose Route Stop Time Status Admin Acetaminophen 650 MG Q8P PRN 12/24 1800 AC 12/25 PO 0510 Acetaminophen 0 .STK-MED ONE 12/24 1629 DC PO Acetaminophen 650 MG ONCE ONE 12/24 1600 DC 12/24 PO 12/24 1601 1630 Atorvastatin Calcium 20 MG 1700 12/25 1700 AC PO Ceftazidime 1,000 MG Q24H 12/25 1630 AC IV Ceftazidime 0 .STK-MED ONE 12/24 1602 DC .ROUTE Ceftazidime 1,000 MG ONCE ONE 12/24 1545 DC 12/24 IV 12/24 1546 1626 Famciclovir 250 MG DAILY 12/25 09 AC PO Non-Formulary 0 SEE ADMIN CRITERIA 12/25 599 UNVr Medication ANY Omeprazole 40 MG DAILY AC 12/25 0700 AC 12/25 PO 0510 Sodium Chloride 1,000 ML Q13H 12/24 1730 AC 12/25 IV 0037 Temazepam 15 MG QPM 12/25 0015 AC 12/25 PO 0037 Vancomycin HCl 1,000 MG Q24H 12/25 1630 AC Sodium Chloride 250 ML IV Vancomycin HCl 0 .STK-MED ONE 12/24 1602 DC .ROUTE Vancomycin HCl 1,000 MG ONCE ONE 12/24 1545 DC 12/24 Sodium Chloride 250 ML IV 12/24 1644 1626 Review of Systems Review of Systems: Patient denies headaches or dizziness. Patient denies shortness of breath cough chest pain or hemoptysis. Patient denies nausea vomiting abdominal pain or change in bowel habits. Patient denies hematuria or dysuria. Patient denies new bone aches or focal neurologic deficit Past History Travel History Traveled to [place] past 21 day No Medical History Neurological: peripheral neuropathy Cardiovascular: hypertension, AORTIC INSUFFICENCY Gastrointestinal: GERD Blood Disorders: anemia Cancer(s): MULTIPLE MYELOMA Surgical History Surgical History: non-contributory Psychosocial History Where Do You Live? Home Services at Home: None Smoking Status: Never Smoked ETOH Use: denies use Illicit Drug Use: denies illicit drug use Exam & Diagnostic Data Vital Signs and I&O Vital Signs Date Time Temp Pulse Resp B/P B/P Pulse O2 O2 Flow FiO2 Mean Ox Delivery Rate 12/26 627 99.6 70 20 118/56 93 Room Air 12/25 0510 102.3 12/24 233 99.7 78 20 148/64 96 Room Air 12/24 2335 Room Air 12/24 2209 99.3 68 18 130/65 98 Room Air 12/24 1816 99.2 64 18 132/62 97 Room Air 12/24 1713 101.2 12/24 171 101.2 70 18 98/56 95 Room Air 12/24 1630 98.6 12/24 1557 98.6 70 18 122/58 95 Room Air 12/24 1219 98.7 73 20 132/55 97 Room Air Intake & Output 12/25 0800 07/27 0000 12/24 1600 Intake Total Output Total Balance Patient 161 lb 157 lb Weight Weight Bed scale Reported by Patient Measurement Method Gen.: in NAD ENT: Sclera anicteric Chest: Normal respiratory effort, clear breath sounds Cor: RRR, no extra sounds Abdomen: Soft, bowel sounds present, no tenderness, no rebound Extremities: Without clubbing, cyanosis, or asymmetric edema Neurology: Alert and oriented 3, no gross deficit Skin: No rashes Last 48 Hours of Lab Results: Laboratory Tests 12/24 1825 1534 1525 Chemistry Lactic Acid Cancelled Cancelled Cancelled Troponin I (<0.11 ng/ml) 0.13 *H 12/24 12/24 1330 1308 Chemistry Sodium (137 - 145 mmol/L) 137 Potassium (3.5 - 5.1 mmol/L) 4.5 Chloride (98 - 107 mmol/L) 105 Carbon Dioxide (22 - 30 mmol/L) 24 Anion Gap (5 - 16) 9 BUN (9 - 20 mg/dL) 32 H Creatinine (0.7 - 1.2 mg/dL) 2.2 H Estimated GFR (>60 ml/min) 29 L BUN/Creatinine Ratio (7 - 25 %) 14.5 Glucose (65 - 99 mg/dL) 103 H Lactic Acid (0.7 - 2.1 mmol/L) 0.8 Calcium (8.4 - 10.2 mg/dL) 7.5 L Total Bilirubin (0.2 - 1.3 mg/dL) 1.0 AST (17 - 59 U/L) 20 ALT (21 - 72 U/L) 40 Alkaline Phosphatase (< 127 U/L) 87 Troponin I (<0.11 ng/ml) 0.15 *H Xea-M-Wrluddiivuo Pept (<125 pg/mL) 3330 H Total Protein (6.3 - 8.2 g/dL) 5.3 L Albumin (3.5 - 5.0 g/dL) 3.0 L Globulin (1.9 - 4.2 gm/dL) 2.3 Albumin/Globulin Ratio (1.1 - 2.2 %) 1.3 Hematology CBC w Diff NO MAN DIFF REQ WBC (4.8 - 10.8 /CUMM) 3.1 L RBC (4.70 - 6.10 /CUMM) 3.38 L Hgb (14.0 - 18.0 G/DL) 9.5 L Hct (42 - 52 %) 29.8 L MCV (80.0 - 94.0 FL) 87.9 MCH (27.0 - 31.0 PG) 28.2 MCHC (33.0 - 37.0 G/DL) 32.1 L RDW (11.5 - 14.5 %) 21.7 H Plt Count (130 - 400 /CUMM) 64 L MPV (7.4 - 10.4 FL) 10.1 Gran % (42.2 - 75.2 %) 54.2 Lymphocytes % (20.5 - 51.1 %) 29.8 Monocytes % (1.7 - 9.3 %) 14.5 H Eosinophils % (0 - 5 %) 1.5 Basophils % (0.0 - 2.0 %) 0 Absolute Granulocytes (1.4 - 6.5 /CUMM) 1.7 Absolute Lymphocytes (1.2 - 3.4 /CUMM) 0.9 L Absolute Monocytes (0.10 - 0.60 /CUMM) 0.4 Absolute Eosinophils (0.0 - 0.7 /CUMM) 0 Absolute Basophils (0.0 - 0.2 /CUMM) 0 Urines Urinalysis LIGHT H Urine Color (YEL,AMB,STR) YEL Urine Clarity (CLEAR) HAZY H Urine pH (5.0 - 8.0) 6.0 Ur Specific [place] (1.001 - 1.035) 1.020 Urine Protein (NEG,<30 MG/DL) 100 H Urine Ketones (NEG) NEG Urine Nitrite (NEG) NEG Urine Bilirubin (NEG) NEG Urine Urobilinogen (0.1 - 1.0 EU/dl) 0.2 Ur Leukocyte Esterase (NEG) NEG Ur Microscopic SEDIMENT EXAMINED Urine RBC (0 - 5 /HPF) >75 H Urine WBC (0 - 2 /HPF) 3-5 H Ur Epithelial Cells (NONE,FEW) FEW Urine Bacteria (NEG/NONE) FEW H Urine Hemoglobin (NEG) LARGE H Urine Glucose (N MG/DL) NEG 12/24 1235 Chemistry Troponin I Cancelled Imaging/Other Studies: Chest x-ray-? Pneumonia Assessment/Plan Assessment: 1. Multiple myeloma. Patient clinically appears stable. Calcium is in fact slightly low his creatinine is elevated. CBC is characterized by modest pancytopenia. Multiple myeloma is typically not a febrile illness. Recommend- Please obtain records from his storage management architect Follow CBC Check PT PTT No indication for transfusion at this time 2. Fever-clinically stable,? Source Recommend- Check cultures Consider ID consult Recommendations: .. Consult Acknowledgment - Thank you for your consult request.
[2017-12-25 08:26] LABS: ABSOLUTE BASOPHIL COUNT 0 /CUMM (0.0-0.2); ABSOLUTE EOSINOPHIL COUNT 0 /CUMM (0.0-0.7); ABSOLUTE GRANULOCYTE CT 1.5 /CUMM (1.4-6.5); ABSOLUTE LYMPH COUNT 0.7 /CUMM (1.2-3.4); ABSOLUTE MONOCYTE COUNT 0.3 /CUMM (0.10-0.60); BASOPHIL % 0 % (0.0-2.0); EOSINOPHIL % 1.8 % (0-5); GRANULOCYTE % 57.5 % (42.2-75.2); HEMATOCRIT 26.1 % (42-52); MEAN CORPUSCULAR HGB 28.1 PG (27.0-31.0); MEAN CORPUSCULAR HGB CONC 32.1 G/DL (33.0-37.0); MEAN CORPUSCULAR VOLUME 87.3 FL (80.0-94.0); PLATELET COUNT 52 /CUMM (130-400); RED BLOOD CELL CT 2.98 /CUMM (4.70-6.10); WHITE BLOOD CELL COUNT 2.6 /CUMM (4.8-10.8)
--- NOTE | 2017-12-25 10:19 | PN- Student ---
Subjective Subjective: is an 89 y/o male that was examined at bedside. He has a past medical history of multiple myeloma, CKD, Aortic Aneurysm, and GERD. He presented to the ER 12/24/17 complaining of a 5 day history of fevers; his oncologist gave him Azithromycin 12/21/17 that he finished on 12/24/17. His fever was 102 F on 12/20/17. The patient says the antibiotics helped with his fever during this time but it returned as soon as he finished his course of antibiotics. He has had 2 episodes of fevers in the past 1 year accompanied by UTI's; he reports tylenol helping bring the fevers down but it could not keep them down. His current medications include: Bortezomib (3.5mg), Calcium (unknown strength), Cholcalciferol (2000 units 1 PO abbe), Cyanocobalamin (1000mcg 1 PO daily), Dexamethasone (2mg), Famciclovir (250mg 1 PO daily), Lenalidomide (10mg 1 PO daily), Multivitamin (1 PO daily), Rabeprazole (20mg 1 PO daily), Simvastatin ( 40mg 1 PO qPM), Temazepam (15mg qPM). The patient does not use tobacco and occasionally drinks alcohol, sometimes once a month. The patient does not use any drugs for recreational purposes. His parents from cancer. Two of his brothers in their 80s but he doesnt remeber how. Review of systems was unremarkable other than trouble balancing and stomach aches which he attributes to adverse effects of his chemotherapy regimen. Objective Objective: Upon ascultating the heart, normal S1 S2 sounds were heard. Crackles were heard at the left lower and middle lobes. No cervical or supraclavicular lymphadenopathy. He is on the cardiac floor for elevated troponin (0.13) EKG shows sinus rhythym with no acute ST changes. CXR show PNA of left lower lobe WBC low (3.1) Ca++ low (7.5) Total Protein low (5.3) Albumin low (3) Pro BNP high (3300) Results Results: Laboratory Tests 12/25/17 0755: Anion Gap 9, Estimated GFR 30 L, BUN/Creatinine Ratio 14.8, Troponin I 0.13 *H, CBC w Diff MAN DIFF ORDERED, RBC 2.98 L, MCV 87.3, MCH 28.1, MCHC 32.1 L, RDW 22.0 H, MPV 10.0, Gran % 57.5, Lymphocytes % 27.8, Monocytes % 12.9 H, Eosinophils % 1.8, Basophils % 0, Absolute Granulocytes 1.5, Segmented Neutrophils 65, Band Neutrophils 2, Absolute Lymphocytes 0.7 L, Lymphocytes 22, Monocytes 10 H, Absolute Monocytes 0.3, Eosinophils 1, Absolute Eosinophils 0, Absolute Basophils 0, Platelet Estimate DECREASED, Normocytic RBCs VERIFIED, Normochromic RBCs VERIFIED 12/24/172027: Troponin I 0.13 *H 12/24/17 1825: Lactic Acid Cancelled 12/24/17 1534: Lactic Acid Cancelled 12/24/17 1525: Lactic Acid Cancelled 12/24/17 1330: Urinalysis LIGHT H, Urine Color YEL, Urine Clarity HAZY H, Urine pH 6.0, Ur Specific [place] 1.020, Urine Protein 100 H, Urine Ketones NEG, Urine Nitrite NEG, Urine Bilirubin NEG, Urine Urobilinogen 0.2, Ur Leukocyte Esterase NEG, Ur Microscopic SEDIMENT EXAMINED, Urine RBC >75 H, Urine WBC 3-5 H, Ur Epithelial Cells FEW, Urine Bacteria FEW H, Urine Hemoglobin LARGE H, Urine Glucose NEG 12/24/17 1308: Anion Gap 9, Estimated GFR 29 L, BUN/Creatinine Ratio 14.5, Glucose 103 H, Lactic Acid 0.8, Calcium 7.5 L, Total Bilirubin 1.0, AST 20, ALT 40, Alkaline Phosphatase 87, Troponin I 0.15 *H, Jvd-K-Doibxjqthsc Pept 3330 H, Total Protein 5.3 L, Albumin 3.0 L, Globulin 2.3, Albumin/Globulin Ratio 1.3, CBC w Diff NO MAN DIFF REQ, RBC 3.38 L, MCV 87.9, MCH 28.2, MCHC 32.1 L, RDW 21.7 H , MPV 10.1, Gran % 54.2, Lymphocytes % 29.8, Monocytes % 14.5 H, Eosinophils % 1.5, Basophils % 0, Absolute Granulocytes 1.7, Absolute Lymphocytes 0.9 L, Absolute Monocytes 0.4, Absolute Eosinophils 0, Absolute Basophils 0 12/24/17 1235: Troponin I Cancelled Microbiology 12/24 1525 BLOOD: Blood Culture - CAN Cancelled: Cancelled via OE: DUPLICATE ORDER 12/24 1525 BLOOD: Blood Culture - CAN Cancelled: Cancelled via OE: DUPLICATE ORDER 12/24 1308 BLOOD: Blood Culture - RECD 12/24 1301 BLOOD: Blood Culture - RECD Assessment/Plan Assessment: Vancyomycin & ceftazidime was given initially for PNA of his left lower lobe but switched to ceftriazone 1g IV q24 hrs and doxycycline 100mg q12 hrs.
--- NOTE | 2017-12-25 11:59 | PN- Att Addend ---
Attending Addendum Attending Brief Note Patient seen and examined, feeling slightly better. Was still spiking fevers. Tmax 102.3. Cr remains high. Vital Signs Date Time Temp Pulse Resp B/P B/P Pulse O2 O2 Flow FiO2 Mean Ox Delivery Rate 12/25 0819 99.6 12/25 0628 99.6 70 20 118/56 93 Room Air 12/25 0510 102.3 12/24 2336 99.7 78 20 148/64 96 Room Air 12/24 2335 Room Air 12/24 2209 99.3 68 18 130/65 98 Room Air 12/24 1816 99.2 64 18 132/62 97 Room Air 12/24 1713 101.2 12/24 1712 101.2 70 18 98/56 95 Room Air 12/24 1630 98.6 12/24 1557 98.6 70 18 122/58 95 Room Air 12/24 1219 98.7 73 20 132/55 97 Room Air On exam: aox3, nad. cv; s1, s2, rrr resp; + crackles left base. abd; soft, nt, bs+ ext; trace edema. Laboratory Tests 12/25 12/24 12/24 0755 2027 182 Chemistry Sodium (137 - 145 mmol/L) 139 Potassium (3.5 - 5.1 mmol/L) 4.3 Chloride (98 - 107 mmol/L) 110 H Carbon Dioxide (22 - 30 mmol/L) 20 L Anion Gap (5 - 16) 9 BUN (9 - 20 mg/dL) 31 H Creatinine (0.7 - 1.2 mg/dL) 2.1 H Estimated GFR (>60 ml/min) 30 L BUN/Creatinine Ratio (7 - 25 %) 14.8 Lactic Acid Cancelled Troponin I (<0.11 ng/ml) 0.13 *H 0.13 *H Hematology CBC w Diff MAN DIFF ORDERED WBC (4.8 - 10.8 /CUMM) 2.6 L RBC (4.70 - 6.10 /CUMM) 2.98 L Hgb (14.0 - 18.0 G/DL) 8.4 L Hct (42 - 52 %) 26.1 L MCV (80.0 - 94.0 FL) 87.3 MCH (27.0 - 31.0 PG) 28.1 MCHC (33.0 - 37.0 G/DL) 32.1 L RDW (11.5 - 14.5 %) 22.0 H Plt Count (130 - 400 /CUMM) 52 L MPV (7.4 - 10.4 FL) 10.0 Gran % (42.2 - 75.2 %) 57.5 Lymphocytes % (20.5 - 51.1 %) 27.8 Monocytes % (1.7 - 9.3 %) 12.9 H Eosinophils % (0 - 5 %) 1.8 Basophils % (0.0 - 2.0 %) 0 Absolute Granulocytes (1.4 - 6.5 /CUMM) 1.5 Segmented Neutrophils (42.2 - 75.2 %) 65 Band Neutrophils (0.0 - 5.0 %) 2 Absolute Lymphocytes (1.2 - 3.4 /CUMM) 0.7 L Lymphocytes (20.5 - 51.1 %) 22 Monocytes (1.7 - 9.3 %) 10 H Absolute Monocytes (0.10 - 0.60 /CUMM) 0.3 Eosinophils (0 - 5.0 %) 1 Absolute Eosinophils (0.0 - 0.7 /CUMM) 0 Absolute Basophils (0.0 - 0.2 /CUMM) 0 Platelet Estimate (ADEQUATE) DECREASED Normocytic RBCs VERIFIED Normochromic RBCs VERIFIED 12/24 12/24 1534 1525 Chemistry Lactic Acid Cancelled Cancelled 12/24 12/24 1330 1308 Chemistry Sodium (137 - 145 mmol/L) 137 Potassium (3.5 - 5.1 mmol/L) 4.5 Chloride (98 - 107 mmol/L) 105 Carbon Dioxide (22 - 30 mmol/L) 24 Anion Gap (5 - 16) 9 BUN (9 - 20 mg/dL) 32 H Creatinine (0.7 - 1.2 mg/dL) 2.2 H Estimated GFR (>60 ml/min) 29 L BUN/Creatinine Ratio (7 - 25 %) 14.5 Glucose (65 - 99 mg/dL) 103 H Lactic Acid (0.7 - 2.1 mmol/L) 0.8 Calcium (8.4 - 10.2 mg/dL) 7.5 L Total Bilirubin (0.2 - 1.3 mg/dL) 1.0 AST (17 - 59 U/L) 20 ALT (21 - 72 U/L) 40 Alkaline Phosphatase (< 127 U/L) 87 Troponin I (<0.11 ng/ml) 0.15 *H Ucf-O-Utnpwbcigni Pept (<125 pg/mL) 3330 H Total Protein (6.3 - 8.2 g/dL) 5.3 L Albumin (3.5 - 5.0 g/dL) 3.0 L Globulin (1.9 - 4.2 gm/dL) 2.3 Albumin/Globulin Ratio (1.1 - 2.2 %) 1.3 Hematology CBC w Diff NO MAN DIFF REQ WBC (4.8 - 10.8 /CUMM) 3.1 L RBC (4.70 - 6.10 /CUMM) 3.38 L Hgb (14.0 - 18.0 G/DL) 9.5 L Hct (42 - 52 %) 29.8 L MCV (80.0 - 94.0 FL) 87.9 MCH (27.0 - 31.0 PG) 28.2 MCHC (33.0 - 37.0 G/DL) 32.1 L RDW (11.5 - 14.5 %) 21.7 H Plt Count (130 - 400 /CUMM) 64 L MPV (7.4 - 10.4 FL) 10.1 Gran % (42.2 - 75.2 %) 54.2 Lymphocytes % (20.5 - 51.1 %) 29.8 Monocytes % (1.7 - 9.3 %) 14.5 H Eosinophils % (0 - 5 %) 1.5 Basophils % (0.0 - 2.0 %) 0 Absolute Granulocytes (1.4 - 6.5 /CUMM) 1.7 Absolute Lymphocytes (1.2 - 3.4 /CUMM) 0.9 L Absolute Monocytes (0.10 - 0.60 /CUMM) 0.4 Absolute Eosinophils (0.0 - 0.7 /CUMM) 0 Absolute Basophils (0.0 - 0.2 /CUMM) 0 Urines Urinalysis LIGHT H Urine Color (YEL,AMB,STR) YEL Urine Clarity (CLEAR) HAZY H Urine pH (5.0 - 8.0) 6.0 Ur Specific [place] (1.001 - 1.035) 1.020 Urine Protein (NEG,<30 MG/DL) 100 H Urine Ketones (NEG) NEG Urine Nitrite (NEG) NEG Urine Bilirubin (NEG) NEG Urine Urobilinogen (0.1 - 1.0 EU/dl) 0.2 Ur Leukocyte Esterase (NEG) NEG Ur Microscopic SEDIMENT EXAMINED Urine RBC (0 - 5 /HPF) >75 H Urine WBC (0 - 2 /HPF) 3-5 H Ur Epithelial Cells (NONE,FEW) FEW Urine Bacteria (NEG/NONE) FEW H Urine Hemoglobin (NEG) LARGE H Urine Glucose (N MG/DL) NEG 12/24 1235 Chemistry Troponin I Cancelled A/P: 82-year-old male with past medical history significant for multiple myeloma undergoing chemotherapy with Velcade, Revlimid, dexamethasone and also on famciclovir, chronic kidney disease stage III, hypertension, GERD, chronic anemia admitted to telemetry floor with high-grade fever in an immunocompromised patient, possible pneumonia and high troponin likely secondary to demand ischemia. Appreciate Humalog input. Will get some records from patient's lithographic platemaker. Creatinine remained in the high range. Will get a renal ultrasound. Please get records from patient's primary care doctor to get his baseline creatinine. Awaiting infectious disease evaluation. Currently patient on Vanco and ceftaz. Follow-up on cultures. Awaiting cardiology evaluations. Patient did have bump in his creatinine which could be secondary to demand ischemia. We will try to get the results of his recent echo done at his own scroll shear operator office. Continue the rest of the management. Mechanical DVT prophylaxis.
--- NOTE | 2017-12-25 12:19 | ULTRASOUND REPORT ---
EXAMINATION: US RETROPERITONEAL COMPLETE (RENAL) CLINICAL INFORMATION: 82-year-old male with TYLER/CKD COMPARISON: None TECHNIQUE: Real-time imaging of the kidneys and bladder. FINDINGS: RIGHT KIDNEY: 10.4 x 5.4 x 4.5 cm (SAG x AP x TRV). The kidney is normal in size, contour, and echogenicity. Renal cortical thickness is normal. No calculi or focal parenchymal lesions. No hydronephrosis. There is a simple appearing cyst identified at the superior pole measures 1.6 x 1.1 x 1.4 cm. Circumferential curvilinear hypoechogenicity is noted around mid cortex, may represent small amount of perirenal fluid. LEFT KIDNEY: 10.1 x 4.9 x 4.0 cm (SAG x AP x TRV). The kidney is normal in size, contour, and echogenicity. Renal cortical thickness is normal. No calculi or focal parenchymal lesions. No hydronephrosis. Similar to the right side, curvilinear hypoechogenicity is noted along the mid to inferior cortex, may represent small amount of perirenal fluid. BLADDER: Well-distended and normal. Bilateral ureteral jets are demonstrated. Prevoid bladder volume is 305 mL. Postvoid bladder volume was not measured since patient was unable to void. The prostate volume measures 48.9 mL. IMPRESSION: 1. Bilateral normal-sized kidneys without evidence of any hydronephrosis. 2. Curvilinear hypoechogenicity is noted around both kidneys, may represent incidental small amount of perirenal fluid. 3. The prostate volume measures 48.9 mL. 4. Postvoid residual could not be calculated since the patient was unable to void.
--- NOTE | 2017-12-25 12:33 | Cons- Cardiology ---
General Information and HPI Consulting Request Date of Consult: 12/25/17 Requested By: Chaparro LLODY,Margarita Reason for Consult: Positive troponin History of Present Illness: the patient is an 82-year-old male with history of thoracic aortic aneurysm, chronic kidney disease, GERD, and multiple myeloma who presented with weakness and fever. He notes recent exertional dyspnea. His director of transportation is Dr. Caldwell from my group. his cardiac history includes severe aortic regurgitation, a 4.8 centimeter thoracic aortic aneurysm, moderate mitral and occurred taken, and diastolic dysfunction. The patient underwent an echocardiogram 2 days ago. No chest pain. No shortness of breath. No palpitations. He is noted to have a mild troponin elevation. Allergies/Medications Allergies: Coded Allergies: No Known Allergies (11/11/17) Home Med List: Bortezomib (Velcade) 3.5 MG VIAL 2.34 MG SC AD CHEMO (Reported) Calcium (Elemental-Fr Calcarb) (Calcium) (Unknown Strength) TABLET (Unknown Dose) PO DAILY SUPPLEMENT (Reported) Cholecalciferol (Vitamin D3) (Vitamin D) 2,000 UNIT CAPSULE 1 CAP PO DAILY SUPPLEMENT (Reported) Cyanocobalamin (Vitamin B-12) 1,000 MCG TABLET 1 TAB PO DAILY SUPPLEMENT ( Reported) Dexamethasone 2 MG TABLET 10 MG PO AD STEROID (Reported) Famciclovir 250 MG TABLET 1 TAB PO DAILY ANTIVIRAL (Reported) Lenalidomide (Revlimid) 10 MG CAPSULE 1 CAP PO DAILY CHEMO (Reported) Multivitamin (Multi-Vitamin Daily) 1 EACH TABLET 1 TAB PO DAILY SUPPLEMENT ( Reported) Rabeprazole Sodium (Aciphex) 20 MG TABLET.DR 1 TAB PO DAILY GI (Reported) Simvastatin (Zocor*) 40 MG TABLET 1 TAB PO QPM CHOLESTEROL (Reported) Temazepam 15 MG CAPSULE 1 CAP PO QPMP Sleep (Reported) Current Medications: Current Medications Sig/Meliza Start time Last Medication Dose Route Stop Time Status Admin Acetaminophen 1,000 MG Q6P PRN 12/25 2100 AC N/A 1 UNIT IV Acetaminophen 650 MG .STK-MED ONE 12/25 0509 DC PO 12/25 0510 Acetaminophen 650 MG Q8P PRN 12/24 1800 AC 12/25 PO 1814 Aspirin 81 MG DAILY 12/25 1602 DC 12/25 PO 1808 Atorvastatin Calcium 20 MG 1700 12/25 1700 AC 12/25 PO 1808 Ceftazidime 1,000 MG Q24H 12/25 1630 CAN IV Ceftriaxone Sodium 1,000 MG Q24H 12/25 1415 AC 12/25 IV 1539 Doxycycline Hyclate 100 MG BID 12/25 2100 AC 12/25 PO 203 Famciclovir 250 MG DAILY 12/25 0900 AC 12/25 PO 0816 Omeprazole 40 MG DAILY AC 12/25 0700 AC 12/25 PO 0510 Patient Medication 1 ED ONE ONE 12/25 1445 DC Teaching ED 12/25 1446 Sodium Chloride 1,000 ML Q13H 12/24 1730 DC 12/25 IV 1809 Temazepam 15 MG QPM 12/25 0015 12/25 PO 2035 Vancomycin HCl 1,000 MG Q24H 12/25 1630 CAN Sodium Chloride 250 ML IV Review of Systems Review of Systems: No rash. No tremor. No melena. All other systems are reviewed and are noted to be negative. Past History Travel History Traveled to [place] past 21 day No Medical History Neurological: peripheral neuropathy Cardiovascular: hypertension, AORTIC INSUFFICENCY Gastrointestinal: GERD Blood Disorders: anemia Cancer(s): MULTIPLE MYELOMA Surgical History Surgical History: non-contributory Family History Relations & Conditions If Any: MOTHER FH: cancer FATHER FH: cancer Psychosocial History Where Do You Live? Home Services at Home: None Smoking Status: Never Smoked ETOH Use: denies use Illicit Drug Use: denies illicit drug use Exam & Diagnostic Data Vital Signs and I&O Vital Signs Date Time Temp Pulse Resp B/P B/P Pulse O2 O2 Flow FiO2 Mean Ox Delivery Rate 12/250 Room Air 12/250 100.2 73 20 128/58 94 12/25 2016 100.8 12/25 1813 102.2 12/25 1400 99.2 69 20 120/56 95 Room Air 12/25 0819 99.6 12/25 0628 99.6 70 20 118/56 93 Room Air 12/25 0510 102.3 Intake & Output 12/25 1600 12/25 0812/25 0000 12/24 1600 12/24 0000 Intake Total 900 820 Output Total 350 Balance 900 470 Intake, IV 500 600 Intake, Oral 400 220 Output, Urine 350 Patient 161 lb 157 lb Weight Weight Bed scale Reported by Patient Measurement Method Physical Exam: Gen: The patient is in no acute distress HEENT: Normal nose, ears, and oropharynx. Pupils equal bilaterally. Conjunctiva normal. Neck: Supple with no JVD, no masses, and no thyromegaly Lungs: Clear to auscultation with normal respiratory effort Heart: RRR, S1, S2, 2/6 systolic and diastolic murmur. No peripheral edema, 2+ pulses in the lower extremities bilaterally Abdomen: Soft, nontender, no masses. No hepatomegaly. No splenomegaly Extremities: No clubbing or cyanosis. Normal muscle strength in the upper and lower extremities. Skin: Normal skin turgor with no skin ulcers or lesions noted. Neuro: Cranial nerves intact. Sensation intact Psych: Alert and oriented 3 with appropriate affect Labs/Jerome Results: Laboratory Tests 12/25 Chemistry Sodium (137 - 145 mmol/L) 139 Potassium (3.5 - 5.1 mmol/L) 4.3 Chloride (98 - 107 mmol/L) 110 H Carbon Dioxide (22 - 30 mmol/L) 20 L Anion Gap (5 - 16) 9 BUN (9 - 20 mg/dL) 31 H Creatinine (0.7 - 1.2 mg/dL) 2.1 H Estimated GFR (>60 ml/min) 30 L BUN/Creatinine Ratio (7 - 25 %) 14.8 Troponin I (<0.11 ng/ml) 0.13 *H 0.13 *H Coagulation PT (9.4 - 12.5 SEC) 14.8 H INR (0.90 - 1.17) 1.35 H APTT (25 - 37 SEC) < 20 L Hematology CBC w Diff MAN DIFF ORDERED WBC (4.8 - 10.8 /CUMM) 2.6 L RBC (4.70 - 6.10 /CUMM) 2.98 L Hgb (14.0 - 18.0 G/DL) 8.4 L Hct (42 - 52 %) 26.1 L MCV (80.0 - 94.0 FL) 87.3 MCH (27.0 - 31.0 PG) 28.1 MCHC (33.0 - 37.0 G/DL) 32.1 L RDW (11.5 - 14.5 %) 22.0 H Plt Count (130 - 400 /CUMM) 52 L MPV (7.4 - 10.4 FL) 10.0 Gran % (42.2 - 75.2 %) 57.5 Lymphocytes % (20.5 - 51.1 %) 27.8 Monocytes % (1.7 - 9.3 %) 12.9 H Eosinophils % (0 - 5 %) 1.8 Basophils % (0.0 - 2.0 %) 0 Absolute Granulocytes (1.4 - 6.5 /CUMM) 1.5 Segmented Neutrophils (42.2 - 75.2 %) 65 Band Neutrophils (0.0 - 5.0 %) 2 Absolute Lymphocytes (1.2 - 3.4 /CUMM) 0.7 L Lymphocytes (20.5 - 51.1 %) 22 Monocytes (1.7 - 9.3 %) 10 H Absolute Monocytes (0.10 - 0.60 /CUMM) 0.3 Eosinophils (0 - 5.0 %) 1 Absolute Eosinophils (0.0 - 0.7 /CUMM) 0 Absolute Basophils (0.0 - 0.2 /CUMM) 0 Platelet Estimate (ADEQUATE) DECREASED Normocytic RBCs VERIFIED Normochromic RBCs VERIFIED 12/24 12/24 12/24 1825 1534 1525 Chemistry Lactic Acid Cancelled Cancelled Cancelled 12/24 12/24 1330 1308 Chemistry Sodium (137 - 145 mmol/L) 137 Potassium (3.5 - 5.1 mmol/L) 4.5 Chloride (98 - 107 mmol/L) 105 Carbon Dioxide (22 - 30 mmol/L) 24 Anion Gap (5 - 16) 9 BUN (9 - 20 mg/dL) 32 H Creatinine (0.7 - 1.2 mg/dL) 2.2 H Estimated GFR (>60 ml/min) 29 L BUN/Creatinine Ratio (7 - 25 %) 14.5 Glucose (65 - 99 mg/dL) 103 H Lactic Acid (0.7 - 2.1 mmol/L) 0.8 Calcium (8.4 - 10.2 mg/dL) 7.5 L Total Bilirubin (0.2 - 1.3 mg/dL) 1.0 AST (17 - 59 U/L) 20 ALT (21 - 72 U/L) 40 Alkaline Phosphatase (< 127 U/L) 87 Troponin I (<0.11 ng/ml) 0.15 *H [id number] Pept (<125 pg/mL) 3330 H Total Protein (6.3 - 8.2 g/dL) 5.3 L Albumin (3.5 - 5.0 g/dL) 3.0 L Globulin (1.9 - 4.2 gm/dL) 2.3 Albumin/Globulin Ratio (1.1 - 2.2 %) 1.3 Hematology CBC w Diff NO MAN DIFF REQ WBC (4.8 - 10.8 /CUMM) 3.1 L RBC (4.70 - 6.10 /CUMM) 3.38 L Hgb (14.0 - 18.0 G/DL) 9.5 L Hct (42 - 52 %) 29.8 L MCV (80.0 - 94.0 FL) 87.9 MCH (27.0 - 31.0 PG) 28.2 MCHC (33.0 - 37.0 G/DL) 32.1 L RDW (11.5 - 14.5 %) 21.7 H Plt Count (130 - 400 /CUMM) 64 L MPV (7.4 - 10.4 FL) 10.1 Gran % (42.2 - 75.2 %) 54.2 Lymphocytes % (20.5 - 51.1 %) 29.8 Monocytes % (1.7 - 9.3 %) 14.5 H Eosinophils % (0 - 5 %) 1.5 Basophils % (0.0 - 2.0 %) 0 Absolute Granulocytes (1.4 - 6.5 /CUMM) 1.7 Absolute Lymphocytes (1.2 - 3.4 /CUMM) 0.9 L Absolute Monocytes (0.10 - 0.60 /CUMM) 0.4 Absolute Eosinophils (0.0 - 0.7 /CUMM) 0 Absolute Basophils (0.0 - 0.2 /CUMM) 0 Urines Urinalysis LIGHT H Urine Color (YEL,AMB,STR) YEL Urine Clarity (CLEAR) HAZY H Urine pH (5.0 - 8.0) 6.0 Ur Specific Boss (1.001 - 1.035) 1.020 Urine Protein (NEG,<30 MG/DL) 100 H Urine Ketones (NEG) NEG Urine Nitrite (NEG) NEG Urine Bilirubin (NEG) NEG Urine Urobilinogen (0.1 - 1.0 EU/dl) 0.2 Ur Leukocyte Esterase (NEG) NEG Ur Microscopic SEDIMENT EXAMINED Urine RBC (0 - 5 /HPF) >75 H Urine WBC (0 - 2 /HPF) 3-5 H Ur Epithelial Cells (NONE,FEW) FEW Urine Bacteria (NEG/NONE) FEW H Urine Hemoglobin (NEG) LARGE H Urine Glucose (N MG/DL) NEG 12/24 1235 Chemistry Troponin I Cancelled Diagnostic Data EKG Results EKG tracing is reviewed, and reveals normal sinus rhythm at 61, left axis deviation, borderline prolonged QT interval CXR Results The airspace opacity within the superior segment left lower lobe likely represents pneumonia. Recommend radiographic follow-up in 6 weeks - after completion of medical therapy - to ensure disease resolution. Other Results echocardiogram December 22, 2017: - Mild concentric left ventricular hypertrophy with normal cavity size and systolic function. LVEF calculated by biplane Ya's was 61%. Moderate diastolic dysfunction consistent with increase in filling pressure (grade 2). - Normal right ventricular cavity size and systolic function. - Aortic valve is trileaflet with possible remnant subaortic membrane with severe aortic insufficiency. Holodiastolic flow reversal present in the descending aorta. There is a possible remnant subaortic membrane. Dilated ascending aorta (4.8 cm), aortic root (4.1 cm), and transverse arch (4.0 cm). - Moderately thickened mitral valve leaflets with mild to moderate regurgitation. - Mild - moderate tricuspid regurgitation with normal right heart pressures. - Moderate left and mild right atrial dilatation. - Trivial pericardial effusion. No echocardiographic findings for hemodynamic compromise. - Compared to the prior echocardiogram, dated 02/17/2017, there is a slight decrease in tricuspid regurgitation with now normal pulmonary pressures. CT scan of the chest: Assessment/Plan Assessment/Plan Assessment: 82-year-old male with history of multiple myeloma undergone chemotherapy, aortic and mitral regurgitation, and thoracic aortic aneurysm admitted with pneumonia. He is noted to have a mild troponin elevation, which is likely secondary to demand ischemia. Recommendations: * Antibiotic therapy as per the medical service * No need to repeat an echo since he had 1 recently in the office. * Given the mild degree of troponin elevation which has already peaked, I recommend no further inpatient cardiac workup unless the patient has further symptoms. Consult Acknowledgment - Thank you for your consult request.
--- NOTE | 2017-12-25 12:33 | Cons- Infect Disease ---
General Information and HPI Consulting Request Date of Consult: 12/25/17 Requested By: Margarita Mayfield MD Reason for Consult: Left lower lobe pneumonia Source of Information: patient, old records History of Present Illness: This is an 82-year-old man with a history of hypertension, aortic aneurysm, chronic kidney disease and multiple myeloma, diagnosed 2 years prior to admission, maintained on Velcade, Revlimid and Decadron, status post revision of an inflatable penile implant reservoir 6 weeks prior to admission after removal secondary to its migration 4 months earlier, begun on Azithromycin 3 days prior to admission by his oncologist because of a fever to 102, admitted on December 24 with a 4 day history of recurrent fevers, without chills or sweats, associated with fatigue, with no cough, chest pain, shortness of breath, GI or symptoms. On admission he was initially afebrile but he did spike to 101.2 later in the today. Laboratory data revealed a white blood cell count of 3000, H&H 10 and 30 , platelets 64,000, BUN/creatinine 32 and 2.2, with normal liver enzymes, troponin 0.15, proBNP 3330. Urinalysis greater than 75 RBCs/3-5 WBCs. Chest x- ray revealed an airspace opacity within the superior segment of the left lower lobe. He was begun on Vancomycin and Ceftazidime. He spiked to 102.3 overnight but currently feels well with no complaints. Allergies/Medications Allergies: Coded Allergies: No Known Allergies (11/11/17) Home Med List: Bortezomib (Velcade) 3.5 MG VIAL 2.34 MG SC AD CHEMO (Reported) Calcium (Elemental-Fr Calcarb) (Calcium) (Unknown Strength) TABLET (Unknown Dose) PO DAILY SUPPLEMENT (Reported) Cholecalciferol (Vitamin D3) (Vitamin D) 2,000 UNIT CAPSULE 1 CAP PO DAILY SUPPLEMENT (Reported) Cyanocobalamin (Vitamin B-12) 1,000 MCG TABLET 1 TAB PO DAILY SUPPLEMENT ( Reported) Dexamethasone 2 MG TABLET 10 MG PO AD STEROID (Reported) Famciclovir 250 MG TABLET 1 TAB PO DAILY ANTIVIRAL (Reported) Lenalidomide (Revlimid) 10 MG CAPSULE 1 CAP PO DAILY CHEMO (Reported) Multivitamin (Multi-Vitamin Daily) 1 EACH TABLET 1 TAB PO DAILY SUPPLEMENT ( Reported) Rabeprazole Sodium (Aciphex) 20 MG TABLET.DR 1 TAB PO DAILY GI (Reported) Simvastatin (Zocor*) 40 MG TABLET 1 TAB PO QPM CHOLESTEROL (Reported) Temazepam 15 MG CAPSULE 1 CAP PO QPMP Sleep (Reported) Past History Travel History Traveled to [place] past 21 day No Medical History Neurological: peripheral neuropathy Cardiovascular: hypertension, AORTIC INSUFFICENCY Gastrointestinal: GERD Blood Disorders: anemia Cancer(s): MULTIPLE MYELOMA History of MRSA: No History of VRE: No History of CDIFF: No Isolation History: Standard Influenza Vaccine: 03/18/17 Surgical History Surgical History: removal (Jul 07, 2017) and revision (November 12, 2017) of penile implant reservoir Psychosocial History Where Do You Live? Home Services at Home: None Smoking Status: Never Smoked ETOH Use: denies use Illicit Drug Use: denies illicit drug use Review of Systems Review of Systems All Other Systems: Reviewed and Negative Exam & Diagnostic Data Last 24 Hrs of Vital Signs/I&O Vital Signs Date Time Temp Pulse Resp B/P B/P Pulse O2 O2 Flow FiO2 Mean Ox Delivery Rate 12/25 0819 99.6 12/25 0628 99.6 70 20 118/56 93 Room Air 12/25 0510 102.3 12/24 2336 99.7 78 20 148/64 96 Room Air 12/24 2335 Room Air 12/24 2209 99.3 68 18 130/65 98 Room Air 12/24 1816 99.2 64 18 132/62 97 Room Air 12/24 1713 101.2 12/24 1712 101.2 70 18 98/56 95 Room Air 12/24 1630 98.6 12/24 1557 98.6 70 18 122/58 95 Room Air Intake & Output 12/25 1600 12/25 0800 12/25 0000 Intake Total 820 Output Total 350 Balance 470 Intake, IV 600 Intake, Oral 220 Output, Urine 350 Patient 161 lb Weight Weight Bed scale Measurement Method Physical Exam Other Physical Findings: He is awake and alert in no acute distress. T-max 102.3. Skin reveals no rash. HEENT exam is negative. Neck is supple with no adenopathy. Lungs rhonchi and crackles on the left. Heart regular rhythm with a 2/6 systolic ejection murmur. Abdomen is soft, nontender with positive bowel sounds; palpable penile implant reservoir in the left lower quadrant, with no surrounding inflammation. Back no CVA tenderness. Extremities no cyanosis, clubbing or edema. Neuro is without focality. Last 24 Hours of Lab Results: Laboratory Tests 12/25 12/24 12/24 0755 8 1825 Chemistry Sodium (137 - 145 mmol/L) 139 Potassium (3.5 - 5.1 mmol/L) 4.3 Chloride (98 - 107 mmol/L) 110 H Carbon Dioxide (22 - 30 mmol/L) 20 L Anion Gap (5 - 16) 9 BUN (9 - 20 mg/dL) 31 H Creatinine (0.7 - 1.2 mg/dL) 2.1 H Estimated GFR (>60 ml/min) 30 L BUN/Creatinine Ratio (7 - 25 %) 14.8 Lactic Acid Cancelled Troponin I (<0.11 ng/ml) 0.13 *H 0.13 *H Hematology CBC w Diff MAN DIFF ORDERED WBC (4.8 - 10.8 /CUMM) 2.6 L RBC (4.70 - 6.10 /CUMM) 2.98 L Hgb (14.0 - 18.0 G/DL) 8.4 L Hct (42 - 52 %) 26.1 L MCV (80.0 - 94.0 FL) 87.3 MCH (27.0 - 31.0 PG) 28.1 MCHC (33.0 - 37.0 G/DL) 32.1 L RDW (11.5 - 14.5 %) 22.0 H Plt Count (130 - 400 /CUMM) 52 L MPV (7.4 - 10.4 FL) 10.0 Gran % (42.2 - 75.2 %) 57.5 Lymphocytes % (20.5 - 51.1 %) 27.8 Monocytes % (1.7 - 9.3 %) 12.9 H Eosinophils % (0 - 5 %) 1.8 Basophils % (0.0 - 2.0 %) 0 Absolute Granulocytes (1.4 - 6.5 /CUMM) 1.5 Segmented Neutrophils (42.2 - 75.2 %) 65 Band Neutrophils (0.0 - 5.0 %) 2 Absolute Lymphocytes (1.2 - 3.4 /CUMM) 0.7 L Lymphocytes (20.5 - 51.1 %) 22 Monocytes (1.7 - 9.3 %) 10 H Absolute Monocytes (0.10 - 0.60 /CUMM) 0.3 Eosinophils (0 - 5.0 %) 1 Absolute Eosinophils (0.0 - 0.7 /CUMM) 0 Absolute Basophils (0.0 - 0.2 /CUMM) 0 Platelet Estimate (ADEQUATE) DECREASED Normocytic RBCs VERIFIED Normochromic RBCs VERIFIED 12/24 12/24 1534 1525 Chemistry Lactic Acid Cancelled Cancelled 12/24 12/24 1330 1308 Chemistry Sodium (137 - 145 mmol/L) 137 Potassium (3.5 - 5.1 mmol/L) 4.5 Chloride (98 - 107 mmol/L) 105 Carbon Dioxide (22 - 30 mmol/L) 24 Anion Gap (5 - 16) 9 BUN (9 - 20 mg/dL) 32 H Creatinine (0.7 - 1.2 mg/dL) 2.2 H Estimated GFR (>60 ml/min) 29 L BUN/Creatinine Ratio (7 - 25 %) 14.5 Glucose (65 - 99 mg/dL) 103 H Lactic Acid (0.7 - 2.1 mmol/L) 0.8 Calcium (8.4 - 10.2 mg/dL) 7.5 L Total Bilirubin (0.2 - 1.3 mg/dL) 1.0 AST (17 - 59 U/L) 20 ALT (21 - 72 U/L) 40 Alkaline Phosphatase (< 127 U/L) 87 Troponin I (<0.11 ng/ml) 0.15 *H Gyw-I-Yknwottcyad Pept (<125 pg/mL) 3330 H Total Protein (6.3 - 8.2 g/dL) 5.3 L Albumin (3.5 - 5.0 g/dL) 3.0 L Globulin (1.9 - 4.2 gm/dL) 2.3 Albumin/Globulin Ratio (1.1 - 2.2 %) 1.3 Hematology CBC w Diff NO MAN DIFF REQ WBC (4.8 - 10.8 /CUMM) 3.1 L RBC (4.70 - 6.10 /CUMM) 3.38 L Hgb (14.0 - 18.0 G/DL) 9.5 L Hct (42 - 52 %) 29.8 L MCV (80.0 - 94.0 FL) 87.9 MCH (27.0 - 31.0 PG) 28.2 MCHC (33.0 - 37.0 G/DL) 32.1 L RDW (11.5 - 14.5 %) 21.7 H Plt Count (130 - 400 /CUMM) 64 L MPV (7.4 - 10.4 FL) 10.1 Gran % (42.2 - 75.2 %) 54.2 Lymphocytes % (20.5 - 51.1 %) 29.8 Monocytes % (1.7 - 9.3 %) 14.5 H Eosinophils % (0 - 5 %) 1.5 Basophils % (0.0 - 2.0 %) 0 Absolute Granulocytes (1.4 - 6.5 /CUMM) 1.7 Absolute Lymphocytes (1.2 - 3.4 /CUMM) 0.9 L Absolute Monocytes (0.10 - 0.60 /CUMM) 0.4 Absolute Eosinophils (0.0 - 0.7 /CUMM) 0 Absolute Basophils (0.0 - 0.2 /CUMM) 0 Urines Urinalysis LIGHT H Urine Color (YEL,AMB,STR) YEL Urine Clarity (CLEAR) HAZY H Urine pH (5.0 - 8.0) 6.0 Ur Specific [place] (1.001 - 1.035) 1.020 Urine Protein (NEG,<30 MG/DL) 100 H Urine Ketones (NEG) NEG Urine Nitrite (NEG) NEG Urine Bilirubin (NEG) NEG Urine Urobilinogen (0.1 - 1.0 EU/dl) 0.2 Ur Leukocyte Esterase (NEG) NEG Ur Microscopic SEDIMENT EXAMINED Urine RBC (0 - 5 /HPF) >75 H Urine WBC (0 - 2 /HPF) 3-5 H Ur Epithelial Cells (NONE,FEW) FEW Urine Bacteria (NEG/NONE) FEW H Urine Hemoglobin (NEG) LARGE H Urine Glucose (N MG/DL) NEG 12/24 1235 Chemistry Troponin I Cancelled Last 24 Hours of Jerome Results: Blood cultures x 2 December 24 negative Diagnostic Data Recent Imaging Findings: Chest x-ray December 24 reveals an airspace opacity within the superior segment of the left lower lobe Assessment/Plan Assessment/Plan Impression: This is an 82-year-old man with a history of multiple myeloma, diagnosed 2 years prior to admission, maintained on Velcade, Revlimid and Decadron, begun on Azithromycin 3 days prior to admission because of a fever to 102, admitted on December 24 with a 4 day history of recurrent fevers and fatigue without any focal symptoms, found to be febrile with a chest x-ray revealing an airspace opacity within the left lower lobe. The most likely source of his fever appears to be a left lower lobe pneumonia. He does have a paucity of symptoms, with no cough, shortness breath or chest pain, to support this diagnosis but he does have evidence on examination of his lungs and chest x-ray and, in the absence of any other symptoms, feel that he should be treated for pneumonia. Of note he is not neutropenic; therefore would be most concerned about covering encapsulated organisms given his history of multiple myeloma. He apparently is on Famciclovir prophylaxis for his underlying multiple myeloma. Suggestion: 1. Urine for strep pneumo antigen and Legionella antigen 2. Discontinue Vancomycin and Ceftazidime 3. Begin Ceftriaxone 1 g IV every 24 hours and Doxycycline 100 mg p.o. every 12 hours 4. Continue Famciclovir prophylaxis Consult Acknowledgment - Thank you for your consult request.
[2017-12-25 14:00] VITALS: BP 120/56
--- NOTE | 2017-12-25 15:58 | Cons- Pulmonary ---
General Information and HPI Consulting Request Date of Consult: 12/25/17 Requested By: Dr. Squires Reason for Consult: Pneumonia Source of Information: patient, family, old records Exam Limitations: no limitations History of Present Illness: The patient is an 82-year-old male with a past medical history significant for multiple myeloma undergoing chemotherapy with Velcade, Revlimid, dexamethasone and also on famciclovir, CKD stage III, hypertension, GERD, and chronic anemia. The patient presented to the ED with fever and fatigue. After extensive work up , he was admitted to telemetry floor with high-grade fever (immunocompromised), possible pneumonia and high troponin likely secondary to demand ischemia. The patient has been hemodynamically stable. He is on room air with saturations in the mid 90s. He denies any shortness of breath, cough, sputum production, cough congestion, chest pain, nausea, vomiting or abdominal pain. Allergies/Medications Allergies: Coded Allergies: No Known Allergies (11/11/17) Home Med List: Bortezomib (Velcade) 3.5 MG VIAL 2.34 MG SC AD CHEMO (Reported) Calcium (Elemental-Fr Calcarb) (Calcium) (Unknown Strength) TABLET (Unknown Dose) PO DAILY SUPPLEMENT (Reported) Cholecalciferol (Vitamin D3) (Vitamin D) 2,000 UNIT CAPSULE 1 CAP PO DAILY SUPPLEMENT (Reported) Cyanocobalamin (Vitamin B-12) 1,000 MCG TABLET 1 TAB PO DAILY SUPPLEMENT ( Reported) Dexamethasone 2 MG TABLET 10 MG PO AD STEROID (Reported) Famciclovir 250 MG TABLET 1 TAB PO DAILY ANTIVIRAL (Reported) Lenalidomide (Revlimid) 10 MG CAPSULE 1 CAP PO DAILY CHEMO (Reported) Multivitamin (Multi-Vitamin Daily) 1 EACH TABLET 1 TAB PO DAILY SUPPLEMENT ( Reported) Rabeprazole Sodium (Aciphex) 20 MG TABLET.DR 1 TAB PO DAILY GI (Reported) Simvastatin (Zocor*) 40 MG TABLET 1 TAB PO QPM CHOLESTEROL (Reported) Temazepam 15 MG CAPSULE 1 CAP PO QPMP Sleep (Reported) Current Medications: Current Medications Sig/Meliza Start time Last Medication Dose Route Stop Time Status Admin Acetaminophen 650 MG .STK-MED ONE 12/25 0509 DC PO 12/25 0510 Acetaminophen 650 MG Q8P PRN 12/24 1800 AC 12/25 PO 0510 Acetaminophen 0 .STK-MED ONE 12/24 1629 DC PO Acetaminophen 650 MG ONCE ONE 12/24 1600 DC 12/24 PO 12/24 1601 1630 Atorvastatin Calcium 20 MG 1700 12/25 1700 AC PO Ceftazidime 1,000 MG Q24H 12/25 1630 CAN IV Ceftazidime 0 .STK-MED ONE 12/24 1602 DC .ROUTE Ceftriaxone Sodium 1,000 MG Q24H 12/25 1415 AC 12/25 IV 1539 Famciclovir 250 MG DAILY 12/25 0900 AC 12/25 PO 0816 Omeprazole 40 MG DAILY AC 12/25 0700 AC 12/25 PO 0510 Patient Medication 1 ED ONE ONE 12/25 1445 DC Teaching ED 12/25 1446 Sodium Chloride 1,000 ML Q13H 12/24 1730 AC 12/25 IV 0037 Temazepam 15 MG QPM 12/25 0015 12/25 PO 0037 Vancomycin HCl 1,000 MG Q24H 12/25 1630 CAN Sodium Chloride 250 ML IV Vancomycin HCl 0 .STK-MED ONE 12/24 1602 DC .ROUTE Vancomycin HCl 1,000 MG ONCE ONE 12/24 1545 DC 12/24 Sodium Chloride 250 ML IV 12/24 1644 1626 Review of Systems Review of Systems All Other Systems: Reviewed and Negative Past History Travel History Traveled to [place] past 21 day No Medical History Neurological: peripheral neuropathy Cardiovascular: hypertension, AORTIC INSUFFICENCY Gastrointestinal: GERD Blood Disorders: anemia Cancer(s): MULTIPLE MYELOMA Surgical History Surgical History: non-contributory Psychosocial History Where Do You Live? Home Services at Home: None Smoking Status: Never Smoked ETOH Use: denies use Illicit Drug Use: denies illicit drug use Exam & Diagnostic Data Last 24 Hrs of Vital Signs/I&O Vital Signs Date Time Temp Pulse Resp B/P B/P Pulse O2 O2 Flow FiO2 Mean Ox Delivery Rate 12/25 1400 99.2 69 20 120/56 95 Room Air 12/25 0819 99.6 12/25 0628 99.6 70 20 118/56 93 Room Air 12/25 0510 102.3 12/24 233 99.7 78 20 148/64 96 Room Air 12/24 2335 Room Air 12/24 2209 99.3 68 18 130/65 98 Room Air 12/24 1816 99.2 64 18 132/62 97 Room Air 12/24 1713 101.2 12/24 1712 101.2 70 18 98/56 95 Room Air 12/24 1630 98.6 12/24 1557 98.6 70 18 122/58 95 Room Air Intake & Output 12/25 1600 12/25 0800 12/25 0000 Intake Total 820 Output Total 350 Balance 470 Intake, IV 600 Intake, Oral 220 Output, Urine 350 Patient 161 lb Weight Weight Bed scale Measurement Method Physical Exam General Appearance: no apparent distress, alert, awake, comfortable Head: atraumatic Eyes: Bilateral: PERRL. Neck: supple Respiratory: quiet respiration, lungs clear, decreased breath sounds Cardiovascular: regular rate/rhythm Gastrointestinal: normal bowel sounds, soft, non-tender Extremities: no edema Skin: intact, normal color, warm/dry Last 48 Hrs of Labs/Jerome: Laboratory Tests 12/25/17 0755: Anion Gap 9, Estimated GFR 30 L, BUN/Creatinine Ratio 14.8, Troponin I 0.13 *H, CBC w Diff MAN DIFF ORDERED, RBC 2.98 L, MCV 87.3, MCH 28.1, MCHC 32.1 L, RDW 22.0 H, MPV 10.0, Gran % 57.5, Lymphocytes % 27.8, Monocytes % 12.9 H, Eosinophils % 1.8, Basophils % 0, Absolute Granulocytes 1.5, Segmented Neutrophils 65, Band Neutrophils 2, Absolute Lymphocytes 0.7 L, Lymphocytes 22, Monocytes 10 H, Absolute Monocytes 0.3, Eosinophils 1, Absolute Eosinophils 0, Absolute Basophils 0, Platelet Estimate DECREASED, Normocytic RBCs VERIFIED, Normochromic RBCs VERIFIED 12/24/172027: Troponin I 0.13 *H 12/24/17 1825: Lactic Acid Cancelled 12/24/17 1534: Lactic Acid Cancelled 12/24/17 1525: Lactic Acid Cancelled 12/24/17 1330: Urinalysis LIGHT H, Urine Color YEL, Urine Clarity HAZY H, Urine pH 6.0, Ur Specific [place] 1.020, Urine Protein 100 H, Urine Ketones NEG, Urine Nitrite NEG, Urine Bilirubin NEG, Urine Urobilinogen 0.2, Ur Leukocyte Esterase NEG, Ur Microscopic SEDIMENT EXAMINED, Urine RBC >75 H, Urine WBC 3-5 H, Ur Epithelial Cells FEW, Urine Bacteria FEW H, Urine Hemoglobin LARGE H, Urine Glucose NEG 12/24/17 1308: Anion Gap 9, Estimated GFR 29 L, BUN/Creatinine Ratio 14.5, Glucose 103 H, Lactic Acid 0.8, Calcium 7.5 L, Total Bilirubin 1.0, AST 20, ALT 40, Alkaline Phosphatase 87, Troponin I 0.15 *H, Nyv-A-Jabhgnyncjl Pept 3330 H, Total Protein 5.3 L, Albumin 3.0 L, Globulin 2.3, Albumin/Globulin Ratio 1.3, CBC w Diff NO MAN DIFF REQ, RBC 3.38 L, MCV 87.9, MCH 28.2, MCHC 32.1 L, RDW 21.7 H , MPV 10.1, Gran % 54.2, Lymphocytes % 29.8, Monocytes % 14.5 H, Eosinophils % 1.5, Basophils % 0, Absolute Granulocytes 1.7, Absolute Lymphocytes 0.9 L, Absolute Monocytes 0.4, Absolute Eosinophils 0, Absolute Basophils 0 12/24/17 1235: Troponin I Cancelled Assessment/Plan Impression/Plan: 1. Acute left sided pneumonia in the setting of immunocompromise. 2. MM on chemotherapy. Recommendations: * Urine for strep pneumo antigen and Legionella antigen. * Check a non-contrast CT of the chest for closer evaluation of the pneumonia. * Antibiotics as per ID. * Incentive spirometry. * Monitor oxygen saturations. Keep sats > 92% * DVT prophylaxis at all times. * Thank you for the consult. Will follow along with you and provide recommendations once testing is available. * Discussed issues with patient and his at the bedside. * Discussesd with house staff. Consult Acknowledgment - Thank you for your consult request.
--- NOTE | 2017-12-25 18:01 | CT SCAN REPORT ---
EXAMINATION: CT CHEST WITHOUT CONTRAST CLINICAL INFORMATION: Fever and weakness. COMPARISON: Chest x-ray from yesterday. TECHNIQUE: Multidetector volumetric imaging was performed from the thoracic inlet through the lung bases without contrast. Sagittal and coronal reformatted images were obtained on the technologist workstation. Soft tissue and lung algorithms evaluated. Thick slab MIP images were performed to increase nodule conspicuity. DLP: 219 mGy-cm. FINDINGS: LUNG: Focal masslike consolidation is seen in the left lower lobe. Air bronchograms are seen extending through this. More scattered hazy airspace disease in the remaining right lower lobe. This focal airspace disease directly abuts the fissure. In the acute setting this is most consistent with a lobar type pneumonia. Underlying malignancy cannot be entirely excluded. Repeat imaging after treatment to assure resolution of this finding would be recommended. Mild dependent atelectasis contralateral right lung MEDIASTINUM: Although this is a noncontrast study, there are shotty mediastinal lymph nodes but no bulky adenopathy appreciated. Vascular calcification is seen within the aorta and coronary arteries. The ascending aorta measures up to 4.7 cm in maximal diameter. PERICARDIUM/PLEURA: Tiny bilateral pleural effusions. Tiny pericardial effusion. THYROID/VISUALIZED LOWER NECK: Unremarkable. CHEST WALL/AXILLA: Unremarkable. VISUALIZED UPPER ABDOMEN: Small hiatal hernia. IMPRESSION: Masslike consolidation in the anterior superior aspect of the left lower lobe with air bronchograms extending through this. There is patchy groundglass airspace disease also within the left lower lobe. In the acute setting the appearance is most consistent with a lobar pneumonia. Underlying lesion would be difficult to exclude however on this noncontrast study. Clinical correlation and follow-up imaging after treatment would be recommended to assure its resolution..
[2017-12-25 21:29] LABS: PT 14.8 SEC (9.4-12.5); PTT < 20 SEC (25-37)
[2017-12-25 21:40] VITALS: BP 128/58
[2017-12-26 06:41] VITALS: BP 104/50
[2017-12-26 08:20] LABS: ABSOLUTE BASOPHIL COUNT 0 /CUMM (0.0-0.2); ABSOLUTE EOSINOPHIL COUNT 0.1 /CUMM (0.0-0.7); ABSOLUTE GRANULOCYTE CT 1.8 /CUMM (1.4-6.5); ABSOLUTE LYMPH COUNT 0.5 /CUMM (1.2-3.4); ABSOLUTE MONOCYTE COUNT 0.6 /CUMM (0.10-0.60); BASOPHIL % 0 % (0.0-2.0); GRANULOCYTE % 60.2 % (42.2-75.2); HEMATOCRIT 25.8 % (42-52); MEAN CORPUSCULAR HGB CONC 31.8 G/DL (33.0-37.0); MEAN CORPUSCULAR VOLUME 88.2 FL (80.0-94.0); MEAN PLATELET VOLUME 11.3 FL (7.4-10.4); PLATELET COUNT 62 /CUMM (130-400); RBC DISTRIBUTION WIDTH 21.9 % (11.5-14.5); RED BLOOD CELL CT 2.93 /CUMM (4.70-6.10)
--- NOTE | 2017-12-26 08:32 | PN- Pulmonary ---
Subjective HPI/Critical Care Issues: The patient is awake and alert. He reports feeling improved overall. He continues to have weakness. He has some mild shortness of breath. He denies any increased cough, chest congestion, sputum production, fever or chills. There were no overnight events reported. Objective Current Medications: Current Medications Sig/Meliza Start time Last Medication Dose Route Stop Time Status Admin Acetaminophen 1,000 MG Q6P PRN 12/25 2100 AC N/A 1 UNIT IV Acetaminophen 650 MG .STK-MED ONE 12/25 1813 DC PO 12/25 1814 Acetaminophen 650 MG Q8P PRN 12/24 1800 AC 12/25 PO 1814 Aspirin 81 MG DAILY 12/25 1602 DC 12/25 PO 1808 Atorvastatin Calcium 20 MG 1700 12/25 1700 AC 12/25 PO 1808 Ceftazidime 1,000 MG Q24H 12/25 1630 CAN IV Ceftriaxone Sodium 1,000 MG Q24H 12/25 1415 AC 12/25 IV 1539 Doxycycline Hyclate 100 MG BID 12/25 2100 12/26 PO 0824 Famciclovir 250 MG DAILY 12/25 0900 AC 12/26 PO 0824 Omeprazole 40 MG DAILY AC 12/25 0700 AC 12/26 PO 0555 Patient Medication 1 ED ONE ONE 12/25 1445 DC Teaching ED 12/25 1446 Sodium Chloride 1,000 ML Q13H 12/24 1730 DC 12/25 IV 1809 Temazepam 15 MG QPM 12/25 0015 AC 12/25 PO 2036 Vancomycin HCl 1,000 MG Q24H 12/25 1630 CAN Sodium Chloride 250 ML IV Vital Signs & I&O Last 24 Hrs of Vitals and I&O: Vital Signs Date Time Temp Pulse Resp B/P B/P Pulse O2 O2 Flow FiO2 Mean Ox Delivery Rate 12/26 0641 100.2 67 20 104/50 93 12/25 2200 Room Air 12/25 2140 100.2 73 20 128/58 94 12/25 2017 100.8 12/25 1814 102.2 12/25 1400 99.2 69 20 120/56 95 Room Air Intake & Output 12/26 1600 12/26 0800 12/26 0000 Intake Total 480 320 Output Total Balance 480 320 Intake, IV 200 Intake, Oral 480 120 Number 0 0 Bowel Movements Physical Exam General Appearance: no apparent distress, alert, awake, comfortable Head: atraumatic Neck: supple Respiratory: quiet respiration, lungs clear, decreased breath sounds Cardiovascular: regular rate/rhythm Gastrointestinal: normal bowel sounds, soft, non-tender Extremities: no edema Skin: intact, normal color, warm/dry Results Last 24 Hrs of Lab Results: Laboratory Tests 12/26/17 0638: Sodium Pending, Potassium Pending, Chloride Pending, Carbon Dioxide Pending, Anion Gap Pending, BUN Pending, Creatinine Pending, BUN/Creatinine Ratio Pending , CBC w Diff Pending, WBC Pending, RBC Pending, Hgb Pending, Hct Pending, MCV Pending, MCH Pending, MCHC Pending, RDW Pending, Plt Count Pending, MPV Pending 12/25/17 2000: PT 14.8 H, INR 1.35 H, APTT < 20 L Last 24 Hrs of Micro Results: Cultures negative to date. Diagnostic Data CT Scan Findings: Masslike consolidation in the anterior superior aspect of the left lower lobe with air bronchograms extending through this. There is patchy groundglass airspace disease also within the left lower lobe. In the acute setting the appearance is most consistent with a lobar pneumonia. Underlying lesion would be difficult to exclude however on this noncontrast study. Clinical correlation and follow-up imaging after treatment would be recommended to assure its resolution.. Impression/Plan Impression/Plan Impression/Plan: 1. Acute left sided pneumonia in the setting of immunocompromise. CT chest shows a focal masslike consolidation in the left lower lobe with air bronchograms suggestive of left-sided pneumonia. An underlying lesion cannot be excluded and follow-up study will be necessary. 2. MM on chemotherapy. 3. History of stage III CKD. 4. History of hypertension. 5. Chronic anemia without evidence of active bleeding. Recommendations: * Follow-up cultures. * Antibiotics as per ID. * Incentive spirometry. * Monitor oxygen saturations. Keep sats > 92% * DVT prophylaxis at all times. * Discussesd with house staff. * The patient will need a follow-up CT scan of the chest in 4-6 weeks to ensure resolution of the masslike opacity. I have discussed this with the patient and his at length and reinforced the importance of follow-up.
--- NOTE | 2017-12-26 11:23 | PN- Housestaff ---
See Addendum Subjective Follow-up For: Pneumonia Elevated troponins CKD stage III Subjective: Patient seen resting comfortably in the bed. Currently has no complaints. Patient denies chest pain, shortness of breath, palpitations, or dizziness. Patient using the ALPS, has minimal/no peripheral edema. Says that his will be by later to review any test results that have come in. Review of Systems Constitutional: Denies: chills, fever. Cardiovascular: Denies: chest pain, palpitations, peripheral edema. Respiratory: Reports: cough, short of breath, sputum production. Gastrointestinal: Denies: abdominal pain, nausea, vomiting. Objective Last 24 Hrs of Vital Signs/I&O Vital Signs Date Time Temp Pulse Resp B/P B/P Pulse O2 O2 Flow FiO2 Mean Ox Delivery Rate 12/26 0641 100.2 67 20 104/50 93 12/25 2200 Room Air 12/25 2140 100.2 73 20 128/58 94 12/25 2017 100.8 12/25 1814 102.2 12/25 1400 99.2 69 20 120/56 95 Room Air Intake & Output 12/26 1600 12/26 0800 12/26 0000 Intake Total 480 320 Output Total Balance 480 320 Intake, IV 200 Intake, Oral 480 120 Number 0 0 Bowel Movements Physical Exam General Appearance: Alert, Oriented X3, Cooperative, No Acute Distress HEENT: Atraumatic, PERRLA, EOMI Neck: Supple, No JVD Cardiovascular: Regular Rate, Normal S1, Normal S2, No Murmurs Lungs: Significant rales in the lower lung [place] bilaterally, minimal expiratory wheezing Abdomen: Normal Bowel Sounds, Soft, No Tenderness Extremities: No Clubbing, No Cyanosis, No Edema Current Medications: Current Medications Sig/Meliza Start time Last Medication Dose Route Stop Time Status Admin Acetaminophen 1,000 MG Q6P PRN 12/25 2100 AC N/A 1 UNIT IV Acetaminophen 650 MG .STK-MED ONE 12/25 1813 DC PO 12/25 181 Acetaminophen 650 MG Q8P PRN 12/24 1800 AC 12/25 PO 181 Aspirin 81 MG DAILY 12/25 1602 DC 12/25 PO 1808 Atorvastatin Calcium 20 MG 1700 12/25 1700 AC 12/25 PO 1808 Ceftazidime 1,000 MG Q24H 12/25 1630 CAN IV Ceftriaxone Sodium 1,000 MG Q24H 12/25 1415 AC 12/25 IV 1539 Doxycycline Hyclate 100 MG BID 12/25 2100 AC 12/26 PO 0824 Famciclovir 250 MG DAILY 12/25 0900 AC 12/26 PO 0824 Omeprazole 40 MG DAILY AC 12/25 0700 AC 12/26 PO 0555 Patient Medication 1 ED ONE ONE 12/25 1445 DC Teaching ED 12/25 1446 Sodium Chloride 1,000 ML Q13H 12/24 1730 DC 12/25 IV 1809 Temazepam 15 MG QPM 12/25 0015 AC 12/25 PO 203 Vancomycin HCl 1,000 MG Q24H 12/25 1630 CAN Sodium Chloride 250 ML IV Last 24 Hrs of Lab/Jerome Results Last 24 Hrs of Labs/Mics: Laboratory Tests 12/26/17 0638: Anion Gap 8, Estimated GFR 34 L, BUN/Creatinine Ratio 14.7, CBC w Diff MAN DIFF ORDERED, RBC 2.93 L, MCV 88.2, MCH 28.0, MCHC 31.8 L, RDW 21.9 H, MPV 11.3 H , Gran % 60.2, Lymphocytes % 18.2 L, Monocytes % 19.6 H, Eosinophils % 2.0, Basophils % 0, Absolute Granulocytes 1.8, Segmented Neutrophils 53, Band Neutrophils 4, Absolute Lymphocytes 0.5 L, Lymphocytes 19 L, Monocytes 19 H, Absolute Monocytes 0.6, Eosinophils 5, Absolute Eosinophils 0.1, Absolute Basophils 0, Platelet Estimate DECREASED, Polychromasia 1+, Poikilocytosis 2+, Anisocytosis 2+, Ovalocytes 1+ 12/25/17 2000: PT 14.8 H, INR 1.35 H, APTT < 20 L Microbiology 12/25 2044 URINE ROUT: Legionella Antigen - COMP 12/25 2044 URINE ROUT: Streptococcus pneumoniae Antigen (M - COMP 12/25 2044 URINE ROUT: Urine Culture - RECD Assessment/Plan Assessment: 82 yoM w/ PMHx significant for multiple myeloma on Velcade, Revlimid, dexamethasone on famciclovir, chronic kidney disease stage III, hypertension, GERD, 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 Urine negative for strep pneumo antigen and Legionella antigen. Today's WBC at 3.0, leukopenic but stable. Hemoglobin is dropping to 8.2 from 8.4 and 9.5 upon admission. Hematocrit also low 25.8. Renal ultrasound showed no evidence of hydronephrosis, small amount of possible perirenal fluid. Chest CT showed masslike consolidation in the lower left lobe, and patchy groundglass airspace disease as well. Most likely lobar pneumonia but recommended further follow-up. Problems: #Multiple myeloma on Revlimid, Valcade, dexamethasone #High grade fever (Tmax 102.3) #pneumonia in an immunocompromised patient #High troponins-demand ischemia #Ch anemia due to Chemotherapy PLAN: * Cont. telemetry cardiac monitoring * Incentive spirometry/trc/nebs * Monitor oxygen saturation. Give O2 by NC if sats < 92% * Start Ceftriaxone 1 g IV every 24 hours and Doxycycline 100 mg p.o. every 12 hours * Continue Famciclovir prophylaxis * Follow-up urine culture, blood culture, sputum culture * If there is a drop in blood pressure hydrate with IV fluids and if does not respond stress dose steroids DVT px: ALPS Diet:heart healthy Code status: FC Problem List: 1. Anemia due to chemotherapy 2. Pneumonia 3. Multiple myeloma Pain Ratin Pain Location: none Pain Goal: Pain 4 or less Pain Plan: per pathway Tomorrow's Labs & Rationales: CBC & BEP
[2017-12-26 14:37] VITALS: BP 120/58
[2017-12-26 22:23] VITALS: BP 126/60
[2017-12-27 07:01] VITALS: BP 108/50
--- NOTE | 2017-12-27 08:17 | PN- Infect Dx ---
Subjective Subjective: Afebrile. He feels well without complaints. Objective Last 24 Hrs of Vital Signs/I&O Vital Signs Date Time Temp Pulse Resp B/P B/P Pulse O2 O2 Flow FiO2 Mean Ox Delivery Rate 12/27 0701 99.0 64 18 108/50 95 Room Air 12/26 2223 98.9 76 18 126/60 96 Room Air 12/26 2129 Room Air 12/26 1437 99.6 65 20 120/58 95 Room Air Intake & Output 12/27 1600 12/27 0800 12/27 0000 Intake Total 120 480 Output Total 250 Balance -130 480 Intake, Oral 120 480 Number 0 Bowel Movements Output, Urine 250 Patient 158 lb Weight Physical Exam Other Physical Findings: He appears comfortable in no acute distress Lungs crackles at the left base Heart regular rhythm with a 2/6 systolic ejection murmur Extremities no cyanosis, clubbing or edema Results Last 24 Hours of Lab Results: Laboratory Tests 12/27 626 Chemistry Sodium (137 - 145 mmol/L) 142 Potassium (3.5 - 5.1 mmol/L) 4.2 Chloride (98 - 107 mmol/L) 112 H Carbon Dioxide (22 - 30 mmol/L) 20 L Anion Gap (5 - 16) 9 BUN (9 - 20 mg/dL) 22 H Creatinine (0.7 - 1.2 mg/dL) 1.9 H Estimated GFR (>60 ml/min) 34 L BUN/Creatinine Ratio (7 - 25 %) 11.6 Hematology CBC w Diff Pending WBC Pending RBC Pending Hgb Pending Hct Pending MCV Pending MCH Pending MCHC Pending RDW Pending Plt Count Pending MPV Pending Last 24 Hours of Jerome Results: Blood cultures x 2 December 24 negative Urine culture December 24 negative Urine culture December 25 negative Urine strep pneumo antigen and Legionella antigen December 25 negative Recent Imaging Studies: CT of the chest December 25 reveals a focal masslike consolidation in the left lower lobe, with tiny bilateral pleural effusions Renal ultrasound December 25 bilateral normal-sized kidneys with no evidence of hydronephrosis Assessment/Plan ID Impression: Improved, with resolution of his fevers, on Ceftriaxone and Doxycycline, Day 3 of treatment for left lower lobe pneumonia in this immunocompromised patient on chemotherapy for multiple myeloma, with pancytopenia. His CT scan confirms the chest x-ray findings of left lower lobe pneumonia, though he has no pulmonary symptoms. He remains on Famciclovir prophylaxis. Suggestion: 1. Continue Ceftriaxone and Doxycycline, with eventual change to a p.o. regimen (perhaps a quinolone) if he continues to improve 2. Continue Famciclovir prophylaxis Lizzy Retana MD will be covering until December 30
[2017-12-27 08:41] LABS: HEMATOCRIT 26.1 % (42-52); MEAN CORPUSCULAR HGB 28.7 PG (27.0-31.0); MEAN CORPUSCULAR HGB CONC 32.9 G/DL (33.0-37.0); MEAN CORPUSCULAR VOLUME 87.3 FL (80.0-94.0); MEAN PLATELET VOLUME 11.7 FL (7.4-10.4); PLATELET COUNT 69 /CUMM (130-400); RBC DISTRIBUTION WIDTH 21.7 % (11.5-14.5); RED BLOOD CELL CT 2.99 /CUMM (4.70-6.10); WHITE BLOOD CELL COUNT 3.2 /CUMM (4.8-10.8)
--- NOTE | 2017-12-27 09:00 | PN- Housestaff ---
Dilcia Abad 12/27/17 0900: Subjective Follow-up For: PNA, Elevetaed trops, Anemia s/p chemotherapy, CKD Stage 3 Complaints: no complaints Tele-Events Since Last Visit: NSR. One event of 4 beat run of v. tach. Pt was asymptomatic. Subjective: Pt seen & examined in bed. No complaints/ no acute events Review of Systems Constitutional: Reports: see HPI. Objective Last 24 Hrs of Vital Signs/I&O Vital Signs Date Time Temp Pulse Resp B/P B/P Pulse O2 O2 Flow FiO2 Mean Ox Delivery Rate 12/27 2235 98.6 73 16 118/62 96 Room Air 12/27 1454 98.5 66 18 106/56 96 Room Air 12/27 0800 Room Air 12/27 0701 99.0 64 18 108/50 95 Room Air Intake & Output 12/28 0800 12/28 0000 12/27 1600 Intake Total 930 Output Total Balance 930 Intake, IV 30 Intake, Oral 900 Number 0 Bowel Movements Patient 165 lb Weight Physical Exam General Appearance: Alert, Oriented X3, Cooperative, No Acute Distress Skin: No Rashes, No Breakdown, No Significant Lesion HEENT: Atraumatic, Mucous Membr. 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 Vitals: Low grade temp overnight Problems: #Multiple myeloma on Revlimid, Valcade, dexamethasone #High grade fever (Tmax 102.3) #pneumonia in an immunocompromised patient #High troponins-demand ischemia #Ch anemia due to Chemotherapy PLAN: * Cont. telemetry cardiac monitoring * Incentive spirometry/trc/nebs * Monitor oxygen saturation. Give O2 by NC if sats < 92% * Cont. Ceftriaxone 1 g IV every 24 hours and Doxycycline 100 mg p.o. every 12 hours * Continue Famciclovir prophylaxi * If there is a drop in blood pressure hydrate with IV fluids and if does not respond stress dose steroids DVT px: ALPS Diet:heart healthy Code status: FC Problem List: 1. Anemia due to chemotherapy 2. Multiple myeloma 3. Pneumonia Pain Ratin Pain Location: none Pain Goal: Remain pain free Pain Plan: n/a Tomorrow's Labs & Rationales: cbc, bep Krystal LLOYD,Amir 12/27/17 1028: Attending MD Review Statement Attending Statement Attending MD Statement: examined this patient, discuss w/resident/PA/CLOTH PATTERN MAKER, agreed w/resident/PA/CLOTH PATTERN MAKER, reviewed EMR data (avail), discussed with nursing Attending Assessment/Plan: Pt was seen and evaluated. Reports doing better, had low grade temp in last 24 hrs. Toleraing meds OK. Was also evalauted by ID --switch to PO abx --likely D/C in am --rest of the plan as per resident's note
--- NOTE | 2017-12-27 09:58 | PN- Pulmonary ---
Subjective HPI/Critical Care Issues: Patient feels well without shortness of breath or chest pain Objective Current Medications: Current Medications Sig/Meliza Start time Last Medication Dose Route Stop Time Status Admin Acetaminophen 1,000 MG Q6P PRN 12/25 2100 AC N/A 1 UNIT IV Acetaminophen 650 MG Q8P PRN 12/24 1800 AC 12/25 PO 1814 Atorvastatin Calcium 20 MG 1700 12/25 1700 AC 12/26 PO 1655 Ceftriaxone Sodium 1,000 MG Q24H 12/25 1415 AC 12/26 IV 1420 Doxycycline Hyclate 100 MG BID 12/25 2100 AC 12/27 PO 0839 Famciclovir 250 MG DAILY 12/25 0900 AC 12/27 PO 0839 Omeprazole 40 MG DAILY AC 12/25 0700 AC 12/27 PO 0617 Temazepam 15 MG QPM 12/25 0015 AC 12/26 PO 2019 Vital Signs & I&O Last 24 Hrs of Vitals and I&O: Vital Signs Date Time Temp Pulse Resp B/P B/P Pulse O2 O2 Flow FiO2 Mean Ox Delivery Rate 12/27 0701 99.0 64 18 108/50 95 Room Air 12/26 2223 98.9 76 18 126/60 96 Room Air 12/26 2129 Room Air 12/26 1437 99.6 65 20 120/58 95 Room Air Intake & Output 12/27 1600 12/27 0800 12/27 0000 Intake Total 120 480 Output Total 250 Balance -130 480 Intake, Oral 120 480 Number 0 Bowel Movements Output, Urine 250 Patient 158 lb Weight Room oxygen saturation 95% exam of his chest shows rare left basilar crackles or wheezes cardiac exam shows regular S1 and S2 without murmurs Impression/Plan Impression/Plan Impression/Plan: 82-year-old immunocompromised with chronic renal disease admitted with left lower lobe community-acquired pneumonia Recommendations: Complete course of antibiotics. Follow-up chest CT scan in 4-6 weeks. No further pulmonary suggestions
[2017-12-27 14:54] VITALS: BP 106/56
[2017-12-27 22:35] VITALS: BP 118/62
[2017-12-28 05:48] VITALS: BP 112/62
--- NOTE | 2017-12-28 06:54 | PN- Housestaff ---
Dilcia Abad 12/28/17 0654: Subjective Follow-up For: PNA, MM, moderate pancytopenia Complaints: no complaints Tele-Events Since Last Visit: NSR. HR 60s Subjective: Pt seen & examined lying comfortably in bed. No complaints/no acute events. Review of Systems Constitutional: Reports: see HPI. Objective Last 24 Hrs of Vital Signs/I&O Vital Signs Date Time Temp Pulse Resp B/P B/P Pulse O2 O2 Flow FiO2 Mean Ox Delivery Rate 12/28 0548 98.6 66 18 112/62 94 Physical Exam General Appearance: Alert, Oriented X3, Cooperative, No Acute Distress Skin: No Rashes, No Breakdown, No Significant Lesion Skin Temp/Moisture Exam: Cool/Dry HEENT: Atraumatic, Mucous Membr. 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 Vitals: afebrile, stable vitals. Saturating well on RA Problems: #Multiple myeloma on Revlimid, Valcade, dexamethasone #High grade fever (Tmax 102.3) #pneumonia in an immunocompromised patient-resolved #High troponins-demand ischemia #Mod pancytopenia due to Chemotherapy PLAN: * Pt is stable and doing well * Plan is to d/c to home today * Continue Famciclovir prophylaxis * Pt will complete a total of 10 weeks of abx. Transitioning to Po levofloxacin 500 po OD upon d/c. * Will repeat chest CT 4-6 weeks after d/c and will f/u with his PCP, global climate change analyst, senior ssis developer DVT px: ALPS Diet:heart healthy Code status: FC Problem List: 1. Pneumonia 2. Multiple myeloma 3. Anemia due to chemotherapy Pain Ratin Pain Location: none Pain Goal: Remain pain free Pain Plan: follow pain pathway Tomorrow's Labs & Rationales: not req Rosario LLOYD,Muna 12/28/17 1251: Attending MD Review Statement Attending Statement Attending MD Statement: examined this patient, discuss w/resident/PA/DOUBLE END TENON OPERATOR, agreed w/resident/PA/DOUBLE END TENON OPERATOR, reviewed EMR data (avail), discussed with nursing, discussed with case mgmt, amended to note Attending Assessment/Plan: Patient seen and examined. Resting comfortably not in any acute distress. No issues overnight. No events reported by nursing staff. Reports feeling well this morning denies chest pain or shortness of breath. Denies palpitations. On examination he has adequate entry bilaterally with no added sounds. He is afebrile and hemodynamically stable. He is medically stable to be discharged home today. He will be transitioned to oral antibiotic to complete 14 days of therapy. We have strongly recommended to the patient to follow-up with his primary care provider as an outpatient for repeat CT scan of the next 2 weeks to document complete resolution of findings noted on imaging here in the hospital. He verbalized understanding.
[2017-12-28] MEDS ORDERED: LEVAQUIN500 M1 PO ×3 (08:52→13:10)
--- NOTE | 2017-12-28 09:14 | Patient Discharge Instructions ---
Discharge Instructions General Discharge Information You were seen/treated for: Community acquired Pneumonia Watch for these problems: If you have any of these, please visit your nearest emergency department: Chest pain, shortness of breath, fever, chills Special Instructions: -Please have a repeat Chest CT scan 4-6 weekS after discharge -Please visit your PCP one week after discharge -Please visit your inspector automatic typewriter 1 week after discharge -Please visit your edge glue machine tender 1 week after discharge Diet Recommended Diet: Heart Healthy Activity Activity Self Limited: Yes Acute Coronary Syndrome Inclusion Criteria At DC or during hospital stay patient has or had the following: ACS DIAGNOSIS No Discharge Core Measures Meds if any: Prescribed or Continued at Discharge Meds if any: NOT Prescribed or Continued at Discharge Congestive Heart Failure Inclusion Criteria At DC or during hospital stay patient has or had the following: CHF DIAGNOSIS No Discharge Core Measures Meds if any: Prescribed or Continued at Discharge Meds if any: NOT Prescribed or Continued at Discharge Cerebrovascular accident Inclusion Criteria At DC or during hospital stay patient has or had the following: CVA/TIA Diagnosis No Discharge Core Measures Meds if any: Prescribed or Continued at Discharge Meds if any: NOT Prescribed or Continued at Discharge Venous thromboembolism Inclusion Criteria VTE Diagnosis No VTE Type NONE VTE Confirmed by (Test) NONE Discharge Core Measures - Per Current guidelines, there needs to be overlap - treatment for the first 5 days of Warfarin therapy. - If discharged on Warfarin prior to 5 days of - overlap therapy, the patient will need to be - assessed for post discharge needs including - *Post discharge parental anticoagulation - *Warfarin and/or parental anticoagulation education - *Follow up date to check INR post discharge At least 5 days overlap therapy as Inpatient No Meds if any: Prescribed or Continued at Discharge Note: Overlap Therapy is Warfarin and Anticoagulant Meds if any: NOT Prescribed or Continued at Discharge
--- NOTE | 2017-12-28 09:54 | PN- Cardiology ---
Subjective Subjective: Feeling well. No current chest pain or shortness of breath. No palpitations. 4 beat run of ventricular tachycardia is noted on telemetry. Objective Vital Signs and I&Os Vital Signs Date Time Temp Pulse Resp B/P B/P Pulse O2 O2 Flow FiO2 Mean Ox Delivery Rate 12/28 0548 98.6 66 18 112/62 94 12/27 2235 98.6 73 16 118/62 96 Room Air 12/27 1454 98.5 66 18 106/56 96 Room Air Intake & Output 12/28 1600 12/28 0812/28 0000 12/27 1600 12/27 0812/27 0000 Intake Total 220 200 930 120 480 Output Total 250 Balance 220 200 930 -130 480 Intake, IV 120 100 30 Intake, Oral 100 100 900 120 480 Number 0 0 Bowel Movements Output, Urine 250 Patient 165 lb 158 lb Weight Physical Exam: Gen: The patient is in no acute distress HEENT: Normal nose, ears, and oropharynx. Pupils equal bilaterally. Conjunctiva normal. Neck: Supple with no JVD, no masses, and no thyromegaly Lungs: Clear to auscultation with normal respiratory effort Heart: RRR, S1, S2, 2/6 systolic and diastolic murmur. No peripheral edema, 2+ pulses in the lower extremities bilaterally Abdomen: Soft, nontender, no masses. No hepatomegaly. No splenomegaly Extremities: No clubbing or cyanosis. Normal muscle strength in the upper and lower extremities. Skin: Normal skin turgor with no skin ulcers or lesions noted. Neuro: Cranial nerves intact. Sensation intact Current Medications: Current Medications Sig/Meliza Start time Last Medication Dose Route Stop Time Status Admin Acetaminophen 1,000 MG Q6P PRN 12/25 2099 AC N/A 1 UNIT IV Acetaminophen 650 MG Q8P PRN 12/24 1800 AC 12/25 PO 1814 Atorvastatin Calcium 20 MG 1700 12/25 1700 AC 12/27 PO 1628 Ceftriaxone Sodium 1,000 MG Q24H 12/25 1415 AC 12/27 IV 1444 Doxycycline Hyclate 100 MG BID 12/25 2100 AC 12/28 PO 0818 Famciclovir 250 MG DAILY 12/25 0900 AC 12/28 PO 0818 Lactobacillus 1 CAP DAILY 12/27 1735 AC 12/28 Acidophilus PO 0817 Magnesium Oxide 400 MG ONE ONE 12/27 1545 DC 12/27 PO 12/27 1546 1628 Magnesium Sulfate 1 GM ONCE ONE 12/28 0015 DC 12/28 Dextrose/Water 100 ML IV 12/28 0414 0030 Omeprazole 40 MG DAILY AC 12/25 07 AC 12/28 PO 06 Temazepam 15 MG QPM 12/25 14 AC 12/27 PO 2058 Results Last 48 Hrs of Labs/Mics: Laboratory Tests 12/28/17714: Anion Gap 10, Estimated GFR 39 L, BUN/Creatinine Ratio 11.2, Phosphorus 3.4, Magnesium 1.7 12/27/17626: Anion Gap 9, Estimated GFR 34 L, BUN/Creatinine Ratio 11.6, Magnesium 1.6, CBC w Diff MAN DIFF ORDERED, RBC 2.99 L, MCV 87.3, MCH 28.7, MCHC 32.9 L, RDW 21.7 H, MPV 11.7 H, Segmented Neutrophils 46, Band Neutrophils 1, Lymphocytes 37, Monocytes 6, Eosinophils 7 H, Basophils 3 H, Platelet Estimate DECREASED, Hypochromic-Microcytic 2+, Poikilocytosis 2+, Anisocytosis 2+, Ovalocytes 1+ Recent Imaging Studies: Assessment: 1. Multiple myeloma 2. Thoracic aortic aneurysm 2. Severe aortic regurgitation 4. Pneumonia 5. Mild troponin elevation secondary to demand ischemia Plan: * No further inpatient cardiac workup is indicated. * Follow up with Dr. Caldwell in 1-2 weeks
--- NOTE | 2017-12-28 14:33 | Discharge Summary ---
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 Patient reports fatigue and weakness and a temperature of 102. He had seen his oncologist and was prescribed azithromycin and Tylenol. He also reported exertional dyspnea. Patient denied any chest pain, productive cough, dizziness, headache, palpitations, abd discomfort, burning micturition/ pain or swelling in the legs. Recently, patient reported having fever and UTI while being on chemotherapy. Labs on admission: WBC 3.1, hemoglobin 9.5, hematocrit 29.8, platelets 64, BUN 32, creatinine 2.4 troponins 0.15, proBNP 3330, total protein 5.3, albumin 3 Urinalysis showed large hemoglobin and RBCs. Troponins were trended:0.15---0.13---0.13 Problems: #Multiple myeloma on Revlimid, Valcade, dexamethasone #High grade fever (Tmax 102.3) #pneumonia in an immunocompromised patient #High troponins-demand ischemia #Ch anemia due to Chemotherapy Hospital course: The patient was admitted for treatment of community-acquired pneumonia in the setting of multiple myeloma. #CAP: Patient was febrile with a T-max of 102.3. He was treated for an acute left sided pneumonia in the setting of immunocompromise.The patient was started on broad-spectrum antibiotics vancomycin and ceftazidime in the ED. oxygen saturation was monitored. Incentive spirometry/TRC/nebs were done. On the second day of admission we discontinued the vancomycin and ceftazidime and started him on ceftriaxone 1 g IV every 24 and doxycycline 100 mg per oral every 12. CT chest showed a focal masslike consolidation in the left lower lobe with air bronchograms suggestive of left-sided pneumonia. An underlying lesion could not be excluded and follow-up chest CT will be necessary 4-6 weeks after discharge. The patient will follow up with his veterinary livestock inspector after discharge. Pt will complete a total of 10 days of antibiotics. He is d/c with levofloxacin 500 m g OD for 5 days. #MM: The patient is clinically stable. He has modest pancytopenia status post chemotherapy. The patient had taken his Revlimid on the morning of admission. His Velcade and dexamethasone are due 2 weeks after his date of admission at [place]. Revlimid was held in the hospital, we continued famciclovir prophylaxis. Patient will follow up with his stave and bolt equalizer/oncologist 1 week after discharge. #DVT PX: He was thrombocytopenic so the DVT prophylaxis offered to him was Alps #CODE STATUS: Full code Allergies: Coded Allergies: No Known Allergies (11/11/17) Significant Procedures: CXR 12/24/17; The airspace opacity within the superior segment left lower lobe likely represents pneumonia. Recommend radiographic follow-up in 6 weeks - after completion of medical therapy - to ensure disease resolution. CHEST CT 12/25/17; Masslike consolidation in the anterior superior aspect of the left lower lobe with air bronchograms extending through this. There is patchy groundglass airspace disease also within the left lower lobe. In the acute setting the appearance is most consistent with a lobar pneumonia. Underlying lesion would be difficult to exclude however on this noncontrast study. Clinical correlation and follow-up imaging after treatment would be recommended to assure its resolution Renal USG 1. Bilateral normal-sized kidneys without evidence of any hydronephrosis. 2. Curvilinear hypoechogenicity is noted around both kidneys, may represent incidental small amount of perirenal fluid. 3. The prostate volume measures 48.9 mL. 4. Postvoid residual could not be calculated since the patient was unable to void. Disposition Summary Disposition Principal Diagnosis: Community-acquired pneumonia Additional Diagnosis: Multiple myeloma, moderate pancytopenia status post chemotherapy Discharge Disposition: home or self care Discharge Instructions General Discharge Information Code Status: Full Code Patient's Diet: Heart healthy diet Patient's Activity: As tolerated Follow-Up Instructions/Appts: Watch for these problems: If you have any of these, please visit your nearest emergency department: Chest pain, shortness of breath, fever, chills Special Instructions: -Please have a repeat Chest CT scan 4-6 weekS after discharge -Please visit your PCP one week after discharge -Please visit your exterminator 1 week after discharge -Please visit your veterinary livestock inspector 1 week after discharge Medications at Discharge Discharge Medications: Continue taking these medications: Simvastatin (Zocor*) 40 MG TABLET 1 Tablet ORAL Every night Comments: not taken, atorvastatin administered in place Last Taken:12/27/17 Time:5pm Rabeprazole Sodium (Aciphex) 20 MG TABLET.DR 1 Tablet ORAL DAILY Comments: not taken Famciclovir (Famciclovir) 250 MG TABLET 1 Tablet ORAL DAILY Comments: Last Taken:12/28/17 Time:8am Cyanocobalamin (Vitamin B-12) 1,000 MCG TABLET 1 Tablet ORAL DAILY Comments: not taken Cholecalciferol (Vitamin D3) (Vitamin D) 2,000 UNIT CAPSULE 1 Capsule ORAL DAILY Calcium (Elemental-Fr Calcarb) (Calcium) (Unknown Strength) TABLET Unknown Dose ORAL DAILY Comments: not taken Dexamethasone (Dexamethasone) 2 MG TABLET 10 Milligram ORAL As Directed Comments: not taken Multivitamin (Multi-Vitamin Daily) 1 EACH TABLET 1 Tablet ORAL DAILY Comments: not taken Bortezomib (Velcade) 3.5 MG VIAL 2.34 Milligram SC As Directed Comments: not taken Lenalidomide (Revlimid) 10 MG CAPSULE 1 Capsule ORAL DAILY Comments: Last Taken:12/27/17 Time:9am Temazepam (Temazepam) 15 MG CAPSULE 1 Capsule ORAL Every night as needed Comments: Last Taken:12/27/17 Time:9pm Start taking the following new medications: Levofloxacin (Levaquin) 500 MG TABLET 1 Tablet ORAL DAILY Qty = 5 No Refills Instructions: .. Comments: not taken, begin taking today 12/28/17, take for next 5 days until pills are finished. Copies To: Marianne LLOYD,Juliana Attending MD Review Statement Documenting Attending: Muna Ponce MD Other Findings: Medically stable to be discharged home
== END 2017-12-28 11:45 | DRG 193 ==
LOC: ERH 11:49 → 1NO 16:00 → ERHI 16:00 → ENRESERV 21:43 → 1NO 23:21 → ENPENDDIS 12-28 10:30 → ENTRNSPT 12-28 11:30 → EDTRNSPT 12-28 11:42 → EDTRNSPTSTS 12-28 11:42 → 1NO 12-28 11:45 → CMPTRNSPT 12-28 12:06
PROVIDERS: Internal Medicine; Physician Assistant; Student in an Organized Health Care Education/Training Program
DX: J18.9 Pneumonia, unspecified organism (principal); D61.810 Antineoplastic chemotherapy induced pancytopenia; C90.00 Multiple myeloma not having achieved remission; I24.8 Other forms of acute ischemic heart disease; I47.2 Ventricular tachycardia; R31.29 Other microscopic hematuria; R06.00 Dyspnea, unspecified; I12.9 Hypertensive chronic kidney disease with stage 1 through stage 4 chronic kidney disease, or unspecified chronic kidney disease; N18.3 Chronic kidney disease, stage 3 (moderate); G62.9 Polyneuropathy, unspecified; K21.9 Gastro-esophageal reflux disease without esophagitis; Z92.21 Personal history of antineoplastic chemotherapy; D64.81 Anemia due to antineoplastic chemotherapy
CPT/HCPCS: 1NSP; 36415; 36592; 71046; 76775; 81001; 82436; 87040; 87086; 87449; 87450; 93005; 93010; 96374; J0131; J0696; J0713; J3370; J3490; J7040